=== PATIENT | female | born 1965 | race Caucasian/White ===

== ENCOUNTER → 2016-08-07 | Outpatient (CLI) | payer BC ==
--- NOTE | 2016-08-07 14:32 | CT ---
EXAMINATION TYPE: CT abdomen w con DATE OF EXAM: 08/07/2016 1:59 PM HISTORY: Right-sided abdominal pain for [address] DLP: 373.60mGycm Automated Exposure Control for Dose Reduction was Utilized. CONTRAST: CT scan of the abdomen is performed with oral and with IV Contrast, patient injected with 100 mL of O mnipaque 300. COMPARISON: None. FINDINGS: LUNG BASES: There is linear atelectasis or scarring in the lateral left lower lobe. There is more pat gavin atelectasis or Limited consolidation in visualized portion of the lingula. LIVER/GB: Liver is normal in size with slightly lobulated contour and heterogeneous in appearance. No suspicious intrahepatic mass or hepatic ductal dilatation is seen. Cirrhosis cannot be excluded. Cli nical lab correlation advised. Patent portal vein is seen which is not dilated. There are patent hepa tic veins draining into IVC. PANCREAS: No significant abnormality is seen. SPLEEN: Spleen is mildly enlarged measuring 14.0 cm on long axis on axial image 24 ADRENALS: No significant abnormality is seen. KIDNEYS: No significant abnormality is seen. BOWEL: Oral contrast does not reach colonic level making evaluation slightly suboptimal. There is no suspicious small or large bowel dilatation seen. There is moderate to severe wall thickening in the distal esophagus just above diaphragm. Finding cou ld be product of poor distention. Neoplasm at this level cannot be excluded. Need to further investig ate by endoscopy should be based on clinical correlation. There is suspicion for adjacent prominent v essels or collateral draining veins worrisome for varices. Finding increases suspicion for cirrhosis of the liver and subsequent portal hypertension. LYMPH NODES: No greater than 1cm abdominal abdominal lymph nodes are appreciated. Slightly prominent peripancreatic lymph node is seen near the liver on axial image 24 OSSEOUS STRUCTURES: There is mild multilevel spurring in the spine. There is disc space narrowing L4- L5 level. OTHER: There is mild to moderate atherosclerotic change of aorta and branch vessels. IMPRESSION: 1. Heterogeneous lobulated liver raises concern for underlying cirrhosis. Clinical and lab correlatio n advised. Mild splenomegaly is noted. 2. Attention to distal esophagus as detailed above.
== END | disposition home or self-care (01) ==
LOC: RADCTMAIN 12:43
PROVIDERS: ATTEND Internal Medicine Hematology & Oncology
DX: Q44.7 Other congenital malformations of liver (principal); R16.1 Splenomegaly, not elsewhere classified
CPT/HCPCS: 74160; Q9967

== ENCOUNTER 2019-02-17 12:13 | Day surgery (SDC) | payer BC ==
[2019-02-17 12:53] VITALS: TEMP 98.3
[2019-02-17 12:57] LABS: Mean Platelet Volume 7.9; Platelet Count 102 k/uL (150-450)
[2019-02-17 13:27] LABS: INR 1.1 (<1.2)
[2019-02-17 13:28] LABS: Prothrombin Time 11.5 sec (9.0-12.0)
[2019-02-17 14:28] VITALS: BP 118/62; PULSE 53; RESP 14
--- NOTE | 2019-02-17 14:42 | US ---
Therapeutic paracentesis. DATE OF EXAM: 02/17/2019 CLINICAL HISTORY: Ascites The procedure was discussed with the patient. The risks, complications, benefits, and alternatives we re discussed and any questions were answered. Informed consent was obtained. The patient was placed s upine on the ultrasound table and prepped and draped in the usual sterile fashion. All elements of maximal barrier technique were utilized. Under ultrasound guidance, access into the right lower quadrant was obtained, via the paracentesis catheter system and direct ultrasound guidanc e. Approximately 1.9 liters of straw-colored fluid was removed. The patient was stable throughout the pr ocedure and remained stable upon discharge from Department of Radiology. IMPRESSION: Successful therapeutic paracentesis under ultrasound guidance.
== END 2019-02-17 14:20 | disposition home or self-care (01) ==
LOC: RADPROMAIN 12:13
PROVIDERS: ATTEND Internal Medicine
DX: R18.8 Other ascites (principal)
CPT/HCPCS: 49083; 82565; 85049; 85610

== ENCOUNTER 2019-03-25 12:13 | Day surgery (SDC) | payer BC ==
[2019-03-25 12:36] VITALS: BP 116/64; PULSE 61; RESP 20; TEMP 97.9
--- NOTE | 2019-03-25 13:07 | US ---
Therapeutic paracentesis. DATE OF EXAM: 03/25/2019 CLINICAL HISTORY: Ascites There is only a small amount of fluid within the abdomen. The patient refused the procedure. IMPRESSION: Patient deferred procedure
== END 2019-03-25 12:45 | disposition home or self-care (01) ==
LOC: RADPROMAIN 12:13
PROVIDERS: ATTEND Internal Medicine
DX: R18.8 Other ascites (principal)
CPT/HCPCS: 76705

== ENCOUNTER → 2020-04-28 | Outpatient (CLI) | payer BC ==
--- NOTE | 2020-04-28 08:34 | US ---
EXAMINATION TYPE: US abdomen complete DATE OF EXAM: 04/28/2020 COMPARISON: CT 08/07/16 CLINICAL HISTORY: Alcoholic chirrosis K70.31. Abd pain x 1 year; nausea EXAM MEASUREMENTS: Liver Length: 11.3 cm Gallbladder Wall: 0.3 cm CBD: 0.5 cm Spleen: 12.6 x 5.5 x 6.7 cm Right Kidney: 9.7 x 3.9 x 4.9 cm Left Kidney: 10.4 x 4.9 x 4.4 cm Pancreas: appears WNL as seen Liver: slightly lobulated contour Gallbladder: Few small echogenic foci seen within Evidence for sonographic Finn's sign: No CBD: wnl Spleen: Few small echogenic foci's seen within Right Kidney: No hydronephrosis or masses seen Left Kidney: No hydronephrosis or masses seen Upper IVC: wnl Abd Aorta: some plaque seen within The liver is homogenous. The intrahepatic portion of the IVC and proximal abdominal aorta are within normal limits. Common bile duct is unremarkable. The visualized portions of the pancreas are homog enous. Kidneys are symmetric and free of hydronephrosis. No renal lesions are seen. IMPRESSION: There is evidence of cholelithiasis.
[2020-04-28 10:01] LABS: HCT 36.6 % (34.0-46.0); HGB 12.2 gm/dL (11.4-16.0); MCHC 33.4 g/dL (31.0-37.0); MCV 89.6 fL (80.0-100.0); Mean Platelet Volume 7.8; RBC 4.08 m/uL (3.80-5.40); RDW 13.6 % (11.5-15.5); WBC 4.8 k/uL (3.8-10.6)
[2020-04-28 10:11] LABS: Albumin 4.2 g/dL (3.5-5.0); Calcium 9.4 mg/dL (8.4-10.2); INR 1.1 (<1.2); Potassium 4.6 mmol/L (3.5-5.1); Prothrombin Time 11.4 sec (9.0-12.0); Total Protein 7.5 g/dL (6.3-8.2)
[2020-04-28 10:55] LABS: Platelet Count 75 k/uL (150-450)
== END | disposition home or self-care (01) ==
LOC: RADUSWWP 07:23
PROVIDERS: ATTEND Internal Medicine
DX: K80.20 Calculus of gallbladder without cholecystitis without obstruction (principal); K70.31 Alcoholic cirrhosis of liver with ascites
CPT/HCPCS: 76700; 80053; 82105; 82140; 85027; 85610

== ENCOUNTER 2020-09-23 06:53 | Day surgery (SDC) | payer BC ==
[2020-09-20 11:38] VITALS: BMI 19.4
[2020-09-23] MEDS ORDERED: LIDOCAINE 1% (10MG/ML) FOR IV START INTRADERMA PRN (07:00)
[2020-09-23] MEDS ORDERED: LACTATED RINGERS 1,000 ML IV ONE (07:00)
[2020-09-23] MEDS ORDERED: LACTATED RINGERS 1,000 ML IV SCH (07:00)
[2020-09-23 07:20] LABS: Glucose,Whole Blood 83 mg/dL (75-99)
[2020-09-23] MEDS ORDERED: LIDOCAINE 1% (10MG/ML) FOR IV START INTRADERMA ONE (07:21)
[2020-09-23 07:25] VITALS: TEMP 98.4
[2020-09-23] MEDS ORDERED: PROPOFOL 10 MG/ML 20 ML VIAL IV ONE (07:37)
--- NOTE | 2020-09-23 08:06 | P.PCN ---
Date of Procedure: 09/23/20 Description of Procedure: BRIEF HISTORY: Patient is a 55-year-old female presenting for esophagogastroduodenoscopy for evaluation of cirrhosis of the liver and varices. 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 Last EGD showed small varices, the patient was unable to tolerate nonselective beta joanna therapy. PROCEDURE PERFORMED: Esophagogastroduodenoscopy with biopsies. PREOPERATIVE DIAGNOSIS: Alcoholic cirrhosis of the liver, variceal screening. ESTIMATED BLOOD LOSS: Minimal. IV sedation per anesthesia. PROCEDURE: After informed consent was obtained, the patient was brought into the endoscopy unit. IV sedation was administered by Anesthesia under continuous monitoring. Initially the Olympus GIF-190 video endoscope was inserted into the mouth. Esophagus intubated without any difficulty. It was gradually advanced into the stomach and duodenum and carefully examined. The bulb and the second part of the duodenum appeared normal, with biopsies taken. The scope at this time was withdrawn to the stomach, adequately insufflated with air, and upon careful examination, mucosa of the antrum, body, cardia and the fundus appeared normal except for some mild scattered erythema in the antrum and body suggestive of mild gastritis biopsies taken. The scope was then withdrawn into the esophagus. The GE junction was located at 37 cm from the incisors. The esophagus appeared normal with no varices noted. There were no erosions or ulcerations seen and the patient tolerated the procedure well. IMPRESSION: 1. Mild gastritis . 2. No varices or other abnormalities of the esophagus started. 3. Biopsies of the duodenum, antrum and body. RECOMMENDATIONS: The findings of this examination were discussed with the patient and her . Okay to resume diet. Okay to resume medications. Await pathology from biopsies. Continue current medical management. Follow-up in the GI clinic as previously scheduled.
[2020-09-23 08:26] VITALS: BP 101/68; PULSE 72; RESP 16
== END 2020-09-23 09:25 | disposition home or self-care (01) ==
LOC: ORWHC2ENDO 06:53
PROVIDERS: ATTEND Internal Medicine
DX: K70.30 Alcoholic cirrhosis of liver without ascites (principal); K31.9 Disease of stomach and duodenum, unspecified; K29.70 Gastritis, unspecified, without bleeding; E11.9 Type 2 diabetes mellitus without complications; F41.9 Anxiety disorder, unspecified; F32.9 Major depressive disorder, single episode, unspecified; K21.9 Gastro-esophageal reflux disease without esophagitis; Z87.891 Personal history of nicotine dependence; Z96.652 Presence of left artificial knee joint; Z90.710 Acquired absence of both cervix and uterus; Z98.890 Other specified postprocedural states; J44.9 Chronic obstructive pulmonary disease, unspecified; Z79.891 Long term (current) use of opiate analgesic; Z79.899 Other long term (current) drug therapy
CPT/HCPCS: 88305; 43239; J2704

== ENCOUNTER → 2020-09-27 | Outpatient (CLI) | payer BC ==
--- NOTE | 2020-09-27 09:39 | CT ---
EXAMINATION TYPE: CT soft tissue neck w con DATE OF EXAM: 09/27/2020 HISTORY: Mass left side neck, under jaw COMPARISON: NONE CT DLP: 308.0 mGycm. Automated Exposure Control for Dose Reduction was Utilized. TECHNIQUE: CT scan of the neck is performed with IV Contrast, patient injected with 80 mL of Isovue 300, axial images are obtained, coronal and sagittal reformatted images are reviewed. FINDINGS: Airway: Mild to probable moderate underlying emphysematous change and visualized upper lungs. Mild to moderate biapical pleural/parenchymal scarring. Remainder right patent. Parotid/submandibular glands: Metallic BB at level of left submandibular gland axial image 57. Subman dibular glands symmetric and felt within normal limits. No concerning solid or cystic mass or abnorma l fluid collection this level identified. Parotid glands also symmetric and felt within normal limits . Carotid/Vascular Structures: Mild to moderate mixed plaque left carotid bulb. Moderate peripheral sav que right carotid bulb extends into proximal internal carotid artery. No significant stenosis. Mild t o moderate calcified plaque right greater than left distal internal carotid arteries. Osseous Structures: Grade 1 retrolisthesis C5 on C6 and C6 on C7 with moderate disc space narrowing a nd spurring and endplate sclerosis. Other: Few scattered subcentimeter lymph nodes are noted throughout the neck bilaterally. Prominent b ut subcentimeter lymph node posterior to the BB and left submandibular gland noted symmetric to the o pposite right side. No greater than 1 cm neck adenopathy. IMPRESSION: No suspicious mass at the area of concern left submandibular region.
== END | disposition home or self-care (01) ==
LOC: RADCTMAIN 08:46
PROVIDERS: ATTEND Otolaryngology
DX: R22.1 Localized swelling, mass and lump, neck (principal)
CPT/HCPCS: 70491; Q9967

== ENCOUNTER → 2020-09-27 | Outpatient (CLI) | payer BC ==
[~2020-09-27] MED LIST: SODIUM CHLORIDE 0.9% 500 ML 500 ML in EMPTY BAG 1 BAG IV PRN
[2020-09-27 07:45] VITALS: BP 122/81; PULSE 88; RESP 16; TEMP 98.4
[2020-09-27] MEDS: SODIUM CHLORIDE 0.9% 500 ML 500 ML IV NR ×2 (07:46→09:18)
[2020-09-27 08:15] LABS: Calcium 9.6 mg/dL (8.4-10.2)
== END | disposition home or self-care (01) ==
LOC: PROCWHC3 07:21
PROVIDERS: ATTEND Internal Medicine
DX: N18.30 Chronic kidney disease, stage 3 unspecified (principal)
CPT/HCPCS: 36415; 80048; 96360; 96361

== ENCOUNTER → 2020-10-26 | Outpatient (CLI) | payer BC ==
[2020-10-26 18:33] LABS: Chol/HDL Ratio 2.34; LDL Cholesterol,Calculated 75.8 mg/dL (0.0-131.0); VLDL Calculation 11.2 mg/dL (5.00-40.00)
== END | disposition home or self-care (01) ==
LOC: LABWHC1 08:18
PROVIDERS: ATTEND Nurse Practitioner Adult Health
DX: E78.2 Mixed hyperlipidemia (principal)
CPT/HCPCS: 36415; 80061; 84450; 84460

== ENCOUNTER → 2020-12-28 | Outpatient (CLI) | payer BC ==
[2020-12-28 09:01] LABS: Appearance,Urine Clear (Clear); Bilirubin,Urine Negative (Negative); Blood,Urine Negative (Negative); Color,Urine Light Yellow; Glucose,Urine (UA) Negative (Negative); Ketones,Urine Negative (Negative); Leukocyte Esterase,Urine Negative (Negative); Nitrite,Urine Negative (Negative); PH, Urine 6.5 (5.0-8.0); Protein,Urine Negative (Negative); Specific Gravity,Urine 1.009 (1.001-1.035); Urobilinogen,Urine <2.0 mg/dL (<2.0)
[2020-12-28 09:10] LABS: Albumin 4.2 g/dL (3.5-5.0); Calcium 9.2 mg/dL (8.4-10.2); Phosphorus 4.5 mg/dL (2.5-4.5); Potassium 4.4 mmol/L (3.5-5.1); Total Bilirubin 0.6 mg/dL (0.2-1.3); Uric Acid 5.3 mg/dL (3.7-7.4)
[2020-12-28 09:15] LABS: HCT 35.5 % (34.0-46.0); HGB 11.9 gm/dL (11.4-16.0); MCH 28.9 pg (25.0-35.0); MCHC 33.4 g/dL (31.0-37.0); MCV 86.5 fL (80.0-100.0); Mean Platelet Volume 8.1; RDW 13.7 % (11.5-15.5); WBC 3.3 k/uL (3.8-10.6)
[2020-12-28 09:16] LABS: Prothrombin Time 11.1 sec (9.0-12.0)
--- NOTE | 2020-12-28 09:41 | US ---
EXAMINATION TYPE: US abdomen complete DATE OF EXAM: 12/28/2020 COMPARISON: CT, US CLINICAL HISTORY: K70.31 ALCOHOLIC CIRRHOSIS OF LIVER WITH ASCITES. Stage 3A renal Disease and gallst ones per patient. EXAM MEASUREMENTS: Liver Length: 9.4 x 4.7 x 3.8 cm Gallbladder Wall: 0.1 cm CBD: 0.6 cm Spleen: 12.7 x 14.0 x 4.5 cm Right Kidney: 9.4 x 4.7 x 3.8 cm Left Kidney: 10.0 x 4.6 x 3.5 cm Pancreas: wnl Liver: periportal wall brightness noted on image #37, lobular borders seen left lobe; enlarged MPV i s noted as is greater than13.0cm Gallbladder: multiple, mobile stones are noted within Evidence for sonographic Finn's sign: no CBD: wnl Spleen: enlarged in one measure with multiple hyperechoic foci (granulomas) Right Kidney: No hydronephrosis or masses seen Left Kidney: hyperechoic vessel lord seen suggests wall calcifications Upper IVC: wnl Abd Aorta: ectatic appearance with wall calcifications seen, but size is wnl. IMPRESSION: 1. Persistent periportal increased echogenicity within the right lobe liver. Consider CT abdomen with contrast ordered additional evaluation. 2. Cholelithiasis
[2020-12-28 09:58] LABS: Platelet Count 81 k/uL (150-450)
[2020-12-28 20:22] LABS: % Iron Saturation 35.27 (12.00-45.00)
[2020-12-28 20:31] LABS: Ferritin 173.9 ng/mL (10.0-291.0); Folate, Serum 8.3 ng/mL
== END | disposition home or self-care (01) ==
LOC: RADUSWWP 07:10
PROVIDERS: ATTEND Internal Medicine
DX: K70.31 Alcoholic cirrhosis of liver with ascites (principal); K80.20 Calculus of gallbladder without cholecystitis without obstruction; D64.9 Anemia, unspecified; E55.9 Vitamin D deficiency, unspecified; M10.9 Gout, unspecified; N18.31 Chronic kidney disease, stage 3a
CPT/HCPCS: 36415; 76700; 80053; 81003; 82105; 82140; 82306; 82607; 82728; 82746; 83540; 83550; 83735; 83970; 84100; 84443; 84550; 85027; 85610

== ENCOUNTER → 2021-01-06 | Outpatient (CLI) | payer BC ==
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
== END | disposition home or self-care (01) ==
LOC: RADMRIMAIN 14:44
PROVIDERS: ATTEND Psychiatry & Neurology Neurology
DX: M50.223 Other cervical disc displacement at C6-C7 level (principal); M47.812 Spondylosis without myelopathy or radiculopathy, cervical region
CPT/HCPCS: 70551; 72141

== ENCOUNTER → 2021-01-12 | Outpatient (CLI) | payer BC ==
--- NOTE | 2021-01-12 21:53 | MR ---
EXAMINATION TYPE: MR tspine/lspine wo con DATE OF EXAM: 01/12/2021 COMPARISON: HISTORY: Scoliosis for years, mid and low back pain down left and right leg. CONTRAST: Performed utilizing mL intravenous gadolinium contrast. TECHNIQUE: Multiplanar, multiecho imaging on a 3.0 Bárbara magnet is performed through the thoracic spi ne. Spinal cord maintains normal signal through its visualized course. Vertebral body alignment is normal. Vertebral body heights are preserved. Endplate changes are present compatible with Modic type I degen erative change. Mild diffuse disc space narrowing is present. There is some disc desiccation. No spinal canal stenosis is evident. IMPRESSIONS: 1. Mild degenerative changes. EXAMINATION TYPE: MR tspine/lspine wo con DATE OF EXAM: 01/12/2021 COMPARISON: None HISTORY: Scoliosis for years, mid and low back pain down left and right leg. CONTRAST: 0 mL intravenous Gadavist. TECHNIQUE: Multiplanar, multisequence images of the lumbar spine were acquired. FINDINGS: L5-S1: No significant disc bulge or disc herniation. No spinal canal stenosis. No foraminal stenosi s. . L4-L5: Central disc bulge is present with mild anterior thecal sac compression. No spinal canal sten osis. No foraminal stenosis. Facet hypertrophy is present.. L3-L4: Mild disc bulge is present with anterior thecal sac flattening. No spinal canal stenosis is pr esent. No foraminal stenosis. . L2-L3: Mild left and right lateral disc bulge is present. No foraminal stenosis is present. No spinal canal stenosis is present No spinal canal stenosis. No foraminal stenosis. . L1-L2: Mild disc bulge is present with anterior thecal sac contact. No spinal canal stenosis or neura l foraminal stenosis is present No spinal canal stenosis. No foraminal stenosis. . T12-L1: No significant disc bulge or disc herniation. No spinal canal stenosis. No foraminal stenos is. . IMPRESSION: 1. Central focal bulge L4-5 with mild anterior thecal sac compression. 2. Mild disc bulging L1-2 L2-3 and L3-4.
== END | disposition home or self-care (01) ==
LOC: RADMRIMAIN 13:48
PROVIDERS: ATTEND Orthopaedic Surgery
DX: M47.812 Spondylosis without myelopathy or radiculopathy, cervical region (principal); M51.26 Other intervertebral disc displacement, lumbar region
CPT/HCPCS: 72146; 72148

== ENCOUNTER → 2021-03-14 | Outpatient (CLI) | payer BC ==
[2021-03-14 11:16] VITALS: BP 104/68; PULSE 96; RESP 18; TEMP 98.2
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
== END | disposition home or self-care (01) ==
LOC: PNWHC3 10:58
PROVIDERS: ATTEND Anesthesiology
DX: M47.892 Other spondylosis, cervical region (principal); Z88.8 Allergy status to other drugs, medicaments and biological substances; F17.200 Nicotine dependence, unspecified, uncomplicated
CPT/HCPCS: 99211

== ENCOUNTER 2021-04-05 12:50 | Day surgery (SDC) | payer BC ==
[2021-03-31 15:00] VITALS: BMI 20.3
[~2021-04-05 12:50] MED LIST changes: +LACTATED RINGERS 1,000 ML IV SCH; -SODIUM CHLORIDE 0.9% 500 ML 500 ML in EMPTY BAG 1 BAG IV PRN
[2021-04-05 13:13] VITALS: RESP 16; TEMP 96.7
[2021-04-05 13:19] LABS: Glucose,Whole Blood 83 mg/dL (75-99)
[2021-04-05] MEDS ORDERED: fentaNYL (PF) 50 MCG/ML 2 ML AMP ONE (13:20)
[2021-04-05] MEDS ORDERED: DEXAMETHASONE SOD PHOSPHATE 10 MG/ML 1 ML VIAL ONE (13:20)
[2021-04-05] MEDS ORDERED: MIDAZOLAM 2 MG/2 ML VIAL ONE (13:20)
[2021-04-05] MEDS ORDERED: IOPAMIDOL M200 10 ML VIAL ONE (13:20)
--- NOTE | 2021-04-05 13:35 | P.PCN ---
Date of Procedure: 04/05/21 Surgeon: Sabino Gunter Pathology: none sent Condition: stable Disposition: PACU Description of Procedure: PROCEDURE 1. Cervical epidural steroid injection under fluoroscopic guidance, C7-T1 Right paramedian approach. 2. Cervical epidurogram. : PREOPERATIVE DIAGNOSIS: Cervical radiculopathy, cervical spondylosis without myelopathy POSTOPERATIVE DIAGNOSIS: : Same as above ANESTHESIA: Local anesthesia with 1% lidocaine and IV moderate conscious sedation with 1 mg of Versed and 50 mcg of Fentanyl . EBL 0 PROCEDURE INDICATION: The patient with neck pain and radiculopathy unresponsive to conservative treatment consents for procedure. PROCEDURE DESCRIPTION / TECHNIQUE: The patient was seen and identified in the preoperative area. Risks, benefits, complications, including but not limited to infections ,bleeding , allergic reactions to the medications ,and not complete pain relief, and alternatives were discussed with the patient, the patient agreed to proceed with the procedure and signed the consent. Patient was taken to the OR and time out was completed. The patient was placed in the prone position on the procedure table. A pillow was placed under the patients chest to increase the flexion of the cervical spine . The cervical area was prepped and draped in the usual sterile fashion. Vital signs were closely monitored during the procedure. Conscious sedation was used during the procedure to decrease patients anxiety. Using anterior-posterior fluoroscopy, the C7-T1 interlaminar space was identified and the skin over this site was marked and then infiltrated with 1% lidocaine subcutaneously. Subsequently, a 20-gauge 3-1/2-inch Tuohy epidural needle was inserted and advanced toward the epidural space by means of loss of resistance to air technique and guided by AP and lateral fluoroscopy. The needle tip contacted the lamina of T1 vertebra first, then it was walked off bone and into the epidural space using the loss of to air and fluoroscopic guidance to identify the epidural space. The correct needle position in the epidural space was verified with the injection of 1 mL of the water soluble contrast dye Isovue and observing an excellent epidurogram with the epidural spread of the dye, after negative aspiration for blood and CSF and in the absence of paresthesias. Again after negative aspiration, a 2 ml mixture containing 10 mg of Decadron and 1 ml of preservative free Normal Saline solution was injected and a washout of epidurogram was seen. Needle was withdrawn intact, skin was cleansed, and bandages were applied. A copy of the needle placement picture was saved to the fluoroscopy machine.
[2021-04-05] MEDS ORDERED: IV FLUID CONTINUATION 750 ML IV ONE (13:39)
[2021-04-05 13:58] VITALS: BP 95/63; PULSE 76
--- NOTE | 2021-04-05 19:27 | FL ---
EXAMINATION TYPE: FL guided pain mgmt statistic DATE OF EXAM: 04/05/2021 FLUOROSCOPY Fluoroscopy time of 9 seconds was used during cervical epidural injection. 1 image/s document/s the procedure.
== END 2021-04-05 14:30 | disposition home or self-care (01) ==
LOC: ORPAIN 12:50
PROVIDERS: ATTEND Anesthesiology
DX: M47.22 Other spondylosis with radiculopathy, cervical region (principal); F41.9 Anxiety disorder, unspecified
CPT/HCPCS: 62321; J2250; J1100; J3010; Q9966; 99152

== ENCOUNTER → 2021-04-21 | Outpatient (CLI) | payer BC ==
[2021-04-22 01:25] LABS: African American GFR (CKD) 84.7 (60.0-200.0); Albumin 4.5 g/dL (3.8-4.9); Albumin/Globulin Ratio 1.58 (1.60-3.17); Anion Gap 13.4 mmol/L (4.00-12.00); BUN/Creat Ratio 20.48 Ratio (12.00-20.00); Blood Urea Nitrogen 18.1 mg/dL (9.0-27.0); Calcium 9.5 mg/dL (8.7-10.3); Carbon Dioxide 25.3 mmol/L (21.6-31.8); Globulin 2.8 g/dL (1.6-3.3); Potassium 3.8 mmol/L (3.5-5.5); Total Bilirubin 0.7 mg/dL (0.30-1.20); Total Protein 7.3 g/dL (6.2-8.2)
== END | disposition home or self-care (01) ==
LOC: LABWHC1 11:54
PROVIDERS: ATTEND Family Medicine
DX: Z51.81 Encounter for therapeutic drug level monitoring (principal)
CPT/HCPCS: 36415; 80053

== ENCOUNTER → 2021-05-06 | Outpatient (CLI) | payer BC ==
[2021-05-06 23:05] LABS: INR 1.03 (0.90-1.11); Prothrombin Time 11.2 sec (9.9-11.9)
[2021-05-07 00:24] LABS: Albumin 4.1 g/dL (3.8-4.9); Albumin/Globulin Ratio 1.52 (1.60-3.17); Anion Gap 13.4 mmol/L (4.00-12.00); BUN/Creat Ratio 22.09 Ratio (12.00-20.00); Blood Urea Nitrogen 24.3 mg/dL (9.0-27.0); Carbon Dioxide 24.6 mmol/L (21.6-31.8); Globulin 2.7 g/dL (1.6-3.3); Non-African American GFR(CKD) 56.1 (60.0-200.0); Potassium 3.9 mmol/L (3.5-5.5); Total Bilirubin 0.4 mg/dL (0.30-1.20); Total Protein 6.8 g/dL (6.2-8.2)
[2021-05-07 00:31] LABS: Basophils # (A) 0.03 X 10*3/uL (0.00-0.10); Basophils % (A) 0.6 %; Eosinophils # (A) 0.11 X 10*3/uL (0.04-0.35); Eosinophils % (A) 2.3 %; HCT 34.6 % (37.2-46.3); HGB 11.6 g/dL (12.0-15.0); Lymphocytes # (A) 1.28 X 10*3/uL (0.90-5.00); Lymphocytes % (A) 26.5 %; MCH 28.9 pg (27.0-32.0); MCHC 33.5 g/dL (32.0-37.0); MCV 86.1 fL (80.0-97.0); Mean Platelet Volume 11.2 fL (9.5-12.2); Monocytes # (A) 0.45 X 10*3/uL (0.20-1.00); Monocytes % (A) 9.3 %; Neutrophils # (A) 2.95 X 10*3/uL (1.80-7.70); Neutrophils % (A) 61.1 %; Platelet Count 90 X 10*3/uL (140-440); RBC 4.02 X 10*6/uL (4.10-5.20); RDW 12.6 % (11.5-14.5); WBC 4.83 X 10*3/uL (4.50-10.00)
== END | disposition home or self-care (01) ==
LOC: LABWHC1 15:55
PROVIDERS: ATTEND Internal Medicine Gastroenterology
DX: K74.60 Unspecified cirrhosis of liver (principal)
CPT/HCPCS: 36415; 80053; 82105; 85025; 85610

== ENCOUNTER 2021-05-24 09:39 | Day surgery (SDC) | payer BC ==
[2021-05-23 09:02] VITALS: BMI 20.3
[2021-05-24 09:52] VITALS: BP 119/77; PULSE 88; RESP 18; TEMP 97.8
== END 2021-05-24 10:13 | disposition home or self-care (01) ==
LOC: ORPAIN 09:39
DX: M47.892 Other spondylosis, cervical region (principal); M48.02 Spinal stenosis, cervical region; Z53.9 Procedure and treatment not carried out, unspecified reason

== ENCOUNTER → 2021-06-20 | Outpatient (CLI) | payer BC ==
[2021-06-20 17:17] LABS: Appearance,Urine Clear (Clear); Bilirubin,Urine Negative (Negative); Blood,Urine Negative (Negative); Color,Urine Colorless; Glucose,Urine (UA) Negative (Negative); Ketones,Urine Negative (Negative); Leukocyte Esterase,Urine Negative (Negative); Nitrite,Urine Negative (Negative); PH, Urine 6.5 (5.0-8.0); Protein,Urine Negative (Negative); Specific Gravity,Urine 1.003 (1.001-1.035); Urobilinogen,Urine <2.0 mg/dL (<2.0)
[2021-06-20 23:03] LABS: Basophils # (A) 0.02 X 10*3/uL (0.00-0.10); Basophils % (A) 0.5 %; Eosinophils % (A) 2.3 %; HCT 31.7 % (37.2-46.3); HGB 9.9 g/dL (12.0-15.0); Lymphocytes # (A) 1.14 X 10*3/uL (0.90-5.00); Lymphocytes % (A) 26.5 %; MCH 26.8 pg (27.0-32.0); MCHC 31.2 g/dL (32.0-37.0); MCV 85.9 fL (80.0-97.0); Mean Platelet Volume 11.1 fL (9.5-12.2); Monocytes # (A) 0.32 X 10*3/uL (0.20-1.00); Monocytes % (A) 7.4 %; Neutrophils # (A) 2.72 X 10*3/uL (1.80-7.70); Neutrophils % (A) 63.1 %; Platelet Count 100 X 10*3/uL (140-440); RBC 3.69 X 10*6/uL (4.10-5.20); WBC 4.31 X 10*3/uL (4.50-10.00)
[2021-06-21 01:57] LABS: % Iron Saturation 11.04 (12.00-45.00); African American GFR (CKD) 59.7 (60.0-200.0); Albumin 4.2 g/dL (3.8-4.9); Albumin/Globulin Ratio 1.64 (1.60-3.17); Anion Gap 11.9 mmol/L (10.00-18.00); BUN/Creat Ratio 12.37 Ratio (12.00-20.00); Blood Urea Nitrogen 14.6 mg/dL (9.0-27.0); Calcium 8.9 mg/dL (8.7-10.3); Carbon Dioxide 26.7 mmol/L (20.0-27.5); Globulin 2.6 g/dL (1.6-3.3); Non-African American GFR(CKD) 51.5 (60.0-200.0); Phosphorus 3.7 mg/dL (2.4-5.1); Potassium 3.6 mmol/L (3.5-5.5); Total Bilirubin 0.3 mg/dL (0.30-1.20); Total Protein 6.8 g/dL (6.2-8.2); Uric Acid 5.7 mg/dL (2.9-7.7)
== END | disposition home or self-care (01) ==
LOC: LABWHC1 16:05
PROVIDERS: ATTEND Internal Medicine
DX: D64.9 Anemia, unspecified (principal); E55.9 Vitamin D deficiency, unspecified; N39.0 Urinary tract infection, site not specified; N25.81 Secondary hyperparathyroidism of renal origin; M10.9 Gout, unspecified; N18.31 Chronic kidney disease, stage 3a
CPT/HCPCS: 36415; 80053; 81001; 81003; 82306; 82728; 83540; 83550; 83735; 83970; 84100; 84550; 85025

== ENCOUNTER → 2021-10-10 | Outpatient (CLI) | payer BC ==
[2021-10-10 18:19] LABS: Basophils # (A) 0.03 X 10*3/uL (0.00-0.10); Basophils % (A) 0.6 %; Eosinophils # (A) 0.07 X 10*3/uL (0.04-0.35); Eosinophils % (A) 1.5 %; HCT 40.7 % (37.2-46.3); HGB 13.1 g/dL (12.0-15.0); Immature Grans, Automated 0.2 %; Lymphocytes # (A) 1.06 X 10*3/uL (0.90-5.00); Lymphocytes % (A) 22.7 %; MCH 28.9 pg (27.0-32.0); MCHC 32.2 g/dL (32.0-37.0); MCV 89.6 fL (80.0-97.0); Mean Platelet Volume 10.4 fL (9.5-12.2); Monocytes # (A) 0.36 X 10*3/uL (0.20-1.00); Monocytes % (A) 7.7 %; NRBC Per 100 WBC 0 /100 WBCS (0.0-0.0); Neutrophils # (A) 3.13 X 10*3/uL (1.80-7.70); Neutrophils % (A) 67.3 %; Platelet Count 109 X 10*3/uL (140-440); RBC 4.54 X 10*6/uL (4.10-5.20); RDW 13.3 % (11.5-14.5); WBC 4.66 X 10*3/uL (4.50-10.00)
[2021-10-10 18:36] LABS: % Iron Saturation 24.31 (12.00-45.00); African American GFR (CKD) 57.5 (60.0-200.0); Albumin 4.6 g/dL (3.8-4.9); Albumin/Globulin Ratio 1.48 (1.60-3.17); Anion Gap 16.3 mmol/L (10.00-18.00); BUN/Creat Ratio 10.66 Ratio (12.00-20.00); Blood Urea Nitrogen 12.9 mg/dL (9.0-27.0); Calcium 9.4 mg/dL (8.7-10.3); Carbon Dioxide 27.4 mmol/L (20.0-27.5); Globulin 3.1 g/dL (1.6-3.3); Magnesium 1.9 mg/dL (1.5-2.4); Non-African American GFR(CKD) 49.6 (60.0-200.0); Phosphorus 3.6 mg/dL (2.4-5.1); Potassium 3.4 mmol/L (3.5-5.5); Total Bilirubin 0.6 mg/dL (0.30-1.20); Total Protein 7.6 g/dL (6.2-8.2); Uric Acid 5.8 mg/dL (2.9-7.7)
[2021-10-10 18:51] LABS: Ferritin 93.6 ng/mL (10.0-291.0)
[2021-10-10 19:32] LABS: Appearance,Urine Clear (Clear); Bacteria,Urine None Seen /HPF (None Seen); Bilirubin,Urine Negative (Negative); Blood,Urine Negative (Negative); Color,Urine Yellow (Yellow); Ketones,Urine Negative (Negative); Leukocyte Esterase,Urine Moderate (Negative); Nitrite,Urine Negative (Negative); Protein,Urine Negative (Negative); RBC,Urine 0-2 /HPF (0-2); Specific Gravity,Urine 1.006 (1.001-1.030); Urobilinogen,Urine 0.2 (0.2,1.0)
== END | disposition home or self-care (01) ==
LOC: LABWHC1 14:20
PROVIDERS: ATTEND Internal Medicine
DX: N25.81 Secondary hyperparathyroidism of renal origin (principal); N18.31 Chronic kidney disease, stage 3a; D64.9 Anemia, unspecified; N39.0 Urinary tract infection, site not specified; E55.9 Vitamin D deficiency, unspecified; M10.9 Gout, unspecified
CPT/HCPCS: 36415; 80053; 81001; 82306; 82728; 83540; 83550; 83735; 83970; 84100; 84550; 85025

== ENCOUNTER → 2021-10-17 | Outpatient (CLI) | payer BC ==
--- NOTE | 2021-10-17 13:16 | US ---
EXAMINATION TYPE: US abdomen limited DATE OF EXAM: 10/17/2021 COMPARISON: NONE CLINICAL HISTORY: 56-year-old female K74.60 Liver cirrhosis. Fluid ascites TECHNIQUE: Multiple sonographic images of the 4 abdominal quadrants for assessment of ascites fluid. FINDINGS: Deployment Specialist notes: No fluid visualized. IMPRESSION: Scanning for assessment of ascites fluid. No abdominopelvic ascites identified.
== END | disposition home or self-care (01) ==
LOC: RADUSWWP 09:44
PROVIDERS: ATTEND Internal Medicine
DX: K74.60 Unspecified cirrhosis of liver (principal)
CPT/HCPCS: 76705

== ENCOUNTER → 2021-11-17 | Outpatient (CLI) | payer BC ==
--- NOTE | 2021-11-17 09:24 | US ---
EXAMINATION TYPE: US liver DATE OF EXAM: 11/17/2021 COMPARISON: CT abdomen August 07, 2016 CLINICAL HISTORY: K70.31 ALCOHOLIC CIRRHOSIS OF LIVER WITH ASCITES. cirrhosis, epigastric pain EXAM MEASUREMENTS: Liver Length: 11.5 cm Gallbladder Wall: 0.3 cm CBD: 0.5 cm Right Kidney: 9.5 x 3.6 x 4.0 cm Pancreas: Tail obscured by overlying bowel gas Liver: lobulated left lobe Gallbladder: stones Evidence for sonographic Finn's sign: no CBD: wnl Right Kidney: no evidence of hydronephrosis Visualized portion of pancreas within normal limits. Visualized liver heterogeneously hyperechoic but shows no worrisome mass or ductal dilatation. No surrounding ascites. Small mobile gallstones in gal lbladder. IMPRESSION: Findings consistent with underlying hepatocellular disease. No abnormal biliary dilatatio n. No focal ascites currently.
== END | disposition home or self-care (01) ==
LOC: RADUSWWP 07:41
PROVIDERS: ATTEND Internal Medicine Gastroenterology
DX: K70.31 Alcoholic cirrhosis of liver with ascites (principal)
CPT/HCPCS: 76705

== ENCOUNTER 2021-12-21 20:17 | Inpatient (IN) | payer BC ==
[2021-12-21] MEDS ORDERED: PANTOPRAZOLE 40 MG/10 ML VIAL IVP STA (22:03)
[2021-12-21 22:39] LABS: Albumin 3.6 g/dL (3.5-5.0); Calcium 8.5 mg/dL (8.4-10.2); Potassium 3.4 mmol/L (3.5-5.1); Total Bilirubin 0.4 mg/dL (0.2-1.3); Total Protein 6.4 g/dL (6.3-8.2)
--- NOTE | 2021-12-21 22:39 | ED ---
Recheck HPI - General Chief Complaint: Recheck/Abnormal Lab/Rx Stated Complaint: Abnormal Labs,PCP sent Time Seen by Provider: 12/21/21 22:03 Source: patient Mode of arrival: ambulatory Limitations: no limitations - History of Present Illness Initial Comments: Patient is a 56-year-old woman, who states that she has history of previous liver disease, kidney disease and history of previous GI bleeding. She had a follow-up with her physician today and then received a call tonight that her hemoglobin was 5.3. Patient does note that she has been having fatigue and some exertional dyspnea. Has noted black stools going on for 3 weeks but resisted going to see the physician because she had a family event she wanted to attend. MD Complaint: abnormal lab -: hour(s) Returns Today for: Called Because of Abnormal Lab/Test Symptoms Since Prior Visit: no new symptoms Context: called for abnormal lab result Associated Symptoms: other (Fatigue and exertional dyspnea) - Related Data Home Medications Medication Instructions Recorded Confirmed Albuterol Sulfate [Proair Hfa] 2 puff INHALATION RT-Q4H PRN 06/21/15 12/21/21 ALPRAZolam [Xanax] 1 mg PO TID 02/12/19 12/21/21 traMADol HCl [Ultram] 50 mg PO TID 02/12/19 12/21/21 Nortriptyline [Pamelor] 10 mg PO DAILY 03/09/21 12/21/21 Spironolactone [Aldactone] 25 mg PO BID 03/09/21 12/21/21 Cyclobenzaprine [Flexeril] 5 mg PO BID 03/14/21 12/21/21 Lidocaine [Lidoderm 5% Patch] 1 patch TRANSDERM DAILY PRN 03/14/21 12/21/21 Pantoprazole Sodium [Protonix] 40 mg PO DAILY 03/14/21 12/21/21 Torsemide [Demadex] 20 mg PO DAILY 03/14/21 12/21/21 Famotidine 40 mg PO HS 12/21/21 12/21/21 Lactulose 20 gm PO TID 12/21/21 12/21/21 Linaclotide [Linzess] 145 mcg PO DAILY PRN 12/21/21 12/21/21 Montelukast Sodium [Singulair] 10 mg PO DAILY 12/21/21 12/21/21 Potassium Chloride ER [K-Dur 10] 10 meq PO DAILY 12/21/21 12/21/21 polyethylene glycoL 3350 [Miralax] 17 gm PO DAILY PRN 12/21/21 12/21/21 Allergies Allergy/AdvReac Type Severity Reaction Status Date / Time propranolol Allergy Unknown Verified 12/21/21 23:28 Review of Systems ROS Statement: Those systems with pertinent positive or pertinent negative responses have been documented in the HPI. ROS Other: All systems not noted in ROS Statement are negative. Constitutional: Denies: fever, chills Respiratory: Denies: cough, dyspnea, wheezes, hemoptysis Cardiovascular: Reports: dyspnea on exertion. Denies: chest pain, palpitations, edema Gastrointestinal: Reports: melena. Denies: abdominal pain, nausea, vomiting, diarrhea, constipation, hematemesis, hematochezia Genitourinary: Denies: dysuria, hematuria Musculoskeletal: Denies: back pain Skin: Denies: rash Neurological: Denies: headache, weakness Past Medical History Past Medical History: Asthma, Coronary Artery Disease (CAD), COPD, Diabetes Mellitus, GERD/Reflux, Hyperlipidemia, Hypertension, Liver Disease, Mitral Valve Prolapse (MVP), Osteoarthritis (OA), Renal Disease Additional Past Medical History / Comment(s): scoliosis , herniated disc in neck. Diet controlled DM. STAGE 3A KIDNEY DISEASE History of Any Multi-Drug Resistant Organisms: None Reported Past Surgical History: Breast Surgery, Hysterectomy, Joint Replacement, Orthopedic Surgery Additional Past Surgical History / Comment(s): Total L knee arthroplasty, LT BREAST LUMPECTOMY, REPAIR FX STERNUM, REPAIR FX RT FEMUR, shannon knee arthroscopy, Paracentesis, EGD. PAIN CLINIC PROCEDURES IN THE PAST Past Anesthesia/Blood Transfusion Reactions: No Reported Reaction Past Psychological History: Anxiety, Depression Smoking Status: Current every day smoker, Vaper Past Alcohol Use History: None Reported Past Drug Use History: None Reported - Past Family History Mother Family Medical History: Fibromyalgia General Exam General appearance: alert, in no apparent distress Head exam: Present: atraumatic, normocephalic Eye exam: Present: normal appearance, other (Conjunctival pallor). Absent: scleral icterus, conjunctival injection ENT exam: Present: other (Mucosal pallor) Neck exam: Present: normal inspection Respiratory exam: Present: normal lung sounds bilaterally. Absent: respiratory distress, wheezes, rales, rhonchi, stridor Cardiovascular Exam: Present: regular rate, normal rhythm, normal heart sounds. Absent: systolic murmur, diastolic murmur, rubs, gallop GI/Abdominal exam: Present: soft. Absent: distended, tenderness, guarding, rebound, rigid, mass Extremities exam: Present: normal inspection, normal capillary refill. Absent: pedal edema, calf tenderness Back exam: Present: normal inspection. Absent: CVA tenderness (R), CVA tenderness (L) Neurological exam: Present: alert Skin exam: Present: warm, dry, intact, pallor. Absent: rash Course Vital Signs 12/21/21 12/21/21 12/22/21 21:28 22:16 00:54 Temperature 98.4 F Pulse Rate 106 H 96 92 Respiratory 20 18 16 Rate Blood Pressure 101/62 104/65 106/65 O2 Sat by Pulse 95 100 98 Oximetry 12/22/21 12/22/21 12/22/21 04:40 04:50 05:20 Temperature 97.9 F 98.3 F 98.2 F Pulse Rate 88 92 88 Respiratory 16 16 16 Rate Blood Pressure 82/44 90/51 92/57 O2 Sat by Pulse 98 95 Oximetry 12/22/21 12/22/21 12/22/21 06:29 07:03 09:10 Temperature 98.0 F 98.3 F 98.3 F Pulse Rate 85 86 85 Respiratory 16 16 16 Rate Blood Pressure 90/57 88/51 92/53 O2 Sat by Pulse 95 93 L Oximetry 12/22/21 12/22/21 12/22/21 09:20 09:50 10:50 Temperature 98.4 F 98.4 F 98.3 F Pulse Rate 89 84 82 Respiratory 18 18 18 Rate Blood Pressure 77/56 85/50 94/60 O2 Sat by Pulse Oximetry 12/22/21 12/22/21 12/22/21 12:55 12:57 14:00 Temperature 98.4 F 98.5 F 98.0 F Pulse Rate 82 88 88 Respiratory 18 18 18 Rate Blood Pressure 82/52 85/64 92/70 O2 Sat by Pulse 93 L 94 L 98 Oximetry Medical Decision Making - Lab Data Result diagrams: 12/23/21 07:15 12/23/21 07:17 Lab Results 12/21/21 12/21/21 12/21/21 Range/Units 21:45 21:50 22:07 WBC 5.2 (3.8-10.6) k/uL RBC 2.17 L (3.80-5.40) m/uL Hgb 5.5 L* (11.4-16.0) gm/dL Hct 17.9 L* (34.0-46.0) % MCV 82.4 (80.0-100.0) fL MCH 25.4 (25.0-35.0) pg MCHC 30.8 L (31.0-37.0) g/dL RDW 16.1 H (11.5-15.5) % Plt Count 171 (150-450) k/uL MPV 9.2 Neutrophils % (Manual) 72 % Lymphocytes % 20 % Lymphocytes % (Manual) 22 % Monocytes % 6 % Monocytes % (Manual) 4 % Eosinophils % 2 % Eosinophils % (Manual) 2 % Basophils % 0 % Neutrophils # 3.7 (1.3-7.7) k/uL Neutrophils # (Manual) 3.74 (1.3-7.7) k/uL Lymphocytes # 1.0 (1.0-4.8) k/uL Lymphocytes # (Manual) 1.14 (1.0-4.8) k/uL Monocytes # 0.3 (0-1.0) k/uL Monocytes # (Manual) 0.21 (0-1.0) k/uL Eosinophils # 0.1 (0-0.7) k/uL Eosinophils # (Manual) 0.10 (0-0.7) k/uL Basophils # 0.0 (0-0.2) k/uL Nucleated RBCs 0 (0-0) /100 WBC Manual Slide Review Performed Hypochromasia Marked Poikilocytosis Moderate Anisocytosis Slight Ovalocytes Present PT (9.0-12.0) sec INR (<1.2) APTT (22.0-30.0) sec Sodium (137-145) mmol/L Potassium (3.5-5.1) mmol/L Chloride (98-107) mmol/L Carbon Dioxide (22-30) mmol/L Anion Gap mmol/L BUN (7-17) mg/dL Creatinine (0.52-1.04) mg/dL Est GFR (CKD-EPI)AfAm (>60 ml/min/1.73 sqM) Est GFR (CKD-EPI)NonAf (>60 ml/min/1.73 sqM) Glucose (74-99) mg/dL Plasma Lactic Acid Cheikh (0.7-2.0) mmol/L Calcium (8.4-10.2) mg/dL Total Bilirubin (0.2-1.3) mg/dL AST (14-36) U/L ALT (4-34) U/L Alkaline Phosphatase (38-126) U/L Troponin I (0.000-0.034) ng/mL Total Protein (6.3-8.2) g/dL Albumin (3.5-5.0) g/dL Blood Type O Positive Blood Type Confirm O Positive Blood Type Recheck No Previous Record Bld Type Recheck Status CABO Indicated Antibody Screen NEGATIVE Crossmatch See Detail Spec Expiration Date 12/24/2021 - 234412/21/21 12/21/21 12/21/21 Range/Units 22:07 22:07 22:07 WBC (3.8-10.6) k/uL RBC (3.80-5.40) m/uL Hgb (11.4-16.0) gm/dL Hct (34.0-46.0) % MCV (80.0-100.0) fL MCH (25.0-35.0) pg MCHC (31.0-37.0) g/dL RDW (11.5-15.5) % Plt Count (150-450) k/uL MPV Neutrophils % (Manual) % Lymphocytes % % Lymphocytes % (Manual) % Monocytes % % Monocytes % (Manual) % Eosinophils % % Eosinophils % (Manual) % Basophils % % Neutrophils # (1.3-7.7) k/uL Neutrophils # (Manual) (1.3-7.7) k/uL Lymphocytes # (1.0-4.8) k/uL Lymphocytes # (Manual) (1.0-4.8) k/uL Monocytes # (0-1.0) k/uL Monocytes # (Manual) (0-1.0) k/uL Eosinophils # (0-0.7) k/uL Eosinophils # (Manual) (0-0.7) k/uL Basophils # (0-0.2) k/uL Nucleated RBCs (0-0) /100 WBC Manual Slide Review Hypochromasia Poikilocytosis Anisocytosis Ovalocytes PT 10.7 (9.0-12.0) sec INR 1.0 (<1.2) APTT 21.6 L (22.0-30.0) sec Sodium 135 L (137-145) mmol/L Potassium 3.4 L (3.5-5.1) mmol/L Chloride 100 (98-107) mmol/L Carbon Dioxide 29 (22-30) mmol/L Anion Gap 6 mmol/L BUN 24 H (7-17) mg/dL Creatinine 1.30 H (0.52-1.04) mg/dL Est GFR (CKD-EPI)AfAm 53 (>60 ml/min/1.73 sqM) Est GFR (CKD-EPI)NonAf 46 (>60 ml/min/1.73 sqM) Glucose 102 H (74-99) mg/dL Plasma Lactic Acid Cheikh 1.3 (0.7-2.0) mmol/L Calcium 8.5 (8.4-10.2) mg/dL Total Bilirubin 0.4 (0.2-1.3) mg/dL AST 40 H (14-36) U/L ALT 21 (4-34) U/L Alkaline Phosphatase 79 (38-126) U/L Troponin I (0.000-0.034) ng/mL Total Protein 6.4 (6.3-8.2) g/dL Albumin 3.6 (3.5-5.0) g/dL Blood Type Blood Type Confirm Blood Type Recheck Bld Type Recheck Status Antibody Screen Crossmatch Spec Expiration Date 12/21/21 Range/Units 22:07 WBC (3.8-10.6) k/uL RBC (3.80-5.40) m/uL Hgb (11.4-16.0) gm/dL Hct (34.0-46.0) % MCV (80.0-100.0) fL MCH (25.0-35.0) pg MCHC (31.0-37.0) g/dL RDW (11.5-15.5) % Plt Count (150-450) k/uL MPV Neutrophils % (Manual) % Lymphocytes % % Lymphocytes % (Manual) % Monocytes % % Monocytes % (Manual) % Eosinophils % % Eosinophils % (Manual) % Basophils % % Neutrophils # (1.3-7.7) k/uL Neutrophils # (Manual) (1.3-7.7) k/uL Lymphocytes # (1.0-4.8) k/uL Lymphocytes # (Manual) (1.0-4.8) k/uL Monocytes # (0-1.0) k/uL Monocytes # (Manual) (0-1.0) k/uL Eosinophils # (0-0.7) k/uL Eosinophils # (Manual) (0-0.7) k/uL Basophils # (0-0.2) k/uL Nucleated RBCs (0-0) /100 WBC Manual Slide Review Hypochromasia Poikilocytosis Anisocytosis Ovalocytes PT (9.0-12.0) sec INR (<1.2) APTT (22.0-30.0) sec Sodium (137-145) mmol/L Potassium (3.5-5.1) mmol/L Chloride (98-107) mmol/L Carbon Dioxide (22-30) mmol/L Anion Gap mmol/L BUN (7-17) mg/dL Creatinine (0.52-1.04) mg/dL Est GFR (CKD-EPI)AfAm (>60 ml/min/1.73 sqM) Est GFR (CKD-EPI)NonAf (>60 ml/min/1.73 sqM) Glucose (74-99) mg/dL Plasma Lactic Acid Cheikh (0.7-2.0) mmol/L Calcium (8.4-10.2) mg/dL Total Bilirubin (0.2-1.3) mg/dL AST (14-36) U/L ALT (4-34) U/L Alkaline Phosphatase (38-126) U/L Troponin I <0.012 (0.000-0.034) ng/mL Total Protein (6.3-8.2) g/dL Albumin (3.5-5.0) g/dL Blood Type Blood Type Confirm Blood Type Recheck Bld Type Recheck Status Antibody Screen Crossmatch Spec Expiration Date - EKG Data -: EKG Interpreted by Me EKG shows normal: sinus rhythm, axis (Normal), intervals (Normal), QRS complexes (Normal), ST-T waves (Normal) Rate: normal (Rate 94 bpm) Interpretation: normal EKG Disposition Clinical Impression: GI bleeding, Anemia Disposition: ADMITTED IP TO THIS HOSP Condition: Stable Is patient prescribed a controlled substance at d/c from ED?: No
[2021-12-21 22:41] LABS: Prothrombin Time 10.7 sec (9.0-12.0)
[2021-12-21 22:43] LABS: Partial Thromboplastin Time 21.6 sec (22.0-30.0)
[2021-12-21 22:45] LABS: Anisocytosis Slight; Basophils % (A) 0 %; Eosinophils # (A) 0.1 k/uL (0-0.7); Eosinophils % (A) 2 %; Hypochromasia Marked; Lymphocytes % (A) 20 %; MCH 25.4 pg (25.0-35.0); MCHC 30.8 g/dL (31.0-37.0); MCV 82.4 fL (80.0-100.0); Mean Platelet Volume 9.2; Monocytes # (A) 0.3 k/uL (0-1.0); Monocytes % (A) 6 %; Neutrophils # (A) 3.7 k/uL (1.3-7.7); Platelet Count 171 k/uL (150-450); Poikilocytosis Moderate; RBC 2.17 m/uL (3.80-5.40); RDW 16.1 % (11.5-15.5); WBC 5.2 k/uL (3.8-10.6)
[2021-12-21 23:00] LABS: HGB 5.5 gm/dL (11.4-16.0)
[2021-12-21 23:01] LABS: HCT 17.9 % (34.0-46.0)
[2021-12-21 23:09] LABS: Lymphocytes # (M) 1.14 k/uL (1.0-4.8); Monocytes # (M) 0.21 k/uL (0-1.0); Neutrophils # (M) 3.74 k/uL (1.3-7.7); Neutrophils % (M) 72 %; Nucleated Red Blood Cells 0 /100 WBC (0-0); Total Cells Counted 100
[2021-12-21 23:10] LABS: Ovalocytes Present
[2021-12-22] MEDS ORDERED: NALOXONE 0.4 MG/ML 1 ML VIAL IV PRN (01:18)
[2021-12-22] MEDS ORDERED: ALBUTEROL NEBULIZED 2.5 MG/3 ML INHALATION PRN (01:24)
[2021-12-22] MEDS: SODIUM CHLORIDE 0.9% 1,000 ML IV SCH ×3 (03:10→17:08)
[2021-12-22 08:04] LABS: Anisocytosis Slight; Hypochromasia Marked; MCH 25.3 pg (25.0-35.0); MCV 81.7 fL (80.0-100.0); Mean Platelet Volume 9.3; Platelet Count 123 k/uL (150-450); Poikilocytosis Moderate; RBC 2.34 m/uL (3.80-5.40); WBC 3.2 k/uL (3.8-10.6)
[2021-12-22 08:19] LABS: HCT 19.1 % (34.0-46.0); HGB 5.9 gm/dL (11.4-16.0)
[2021-12-22] MEDS: traMADol 50 MG TAB PO SCH ×3 (08:35→22:09)
[2021-12-22] MEDS: ALPRAZolam 1 MG TAB PO SCH ×3 (08:35→22:09)
[2021-12-22] MEDS: MONTELUKAST 10 MG TAB PO SCH (08:36)
[2021-12-22] MEDS ORDERED: PANTOPRAZOLE 40 MG/10 ML VIAL IV SCH (09:00)
[2021-12-22] MEDS: CYCLOBENZAPRINE 5 MG TAB PO SCH ×2 (09:20→20:40)
[2021-12-22] MEDS: NORTRIPTYLINE 10 MG CAP PO SCH (09:20)
--- NOTE | 2021-12-22 10:57 | P.HPIM ---
History of Present Illness H&P Date: 12/22/21 HISTORY OF PRESENT ILLNESS This is a 56-year-old female patient of Dr. Haskins with past medical history of diabetes mellitus type 2, COPD, generalized osteoarthritis, cirrhosis of the liver and varices who alcoholic, history of previous GI bleed, generalized anxiety disorder. Patient had EGD done 09/[address] Brambila which revealed mild gastritis. No varices or other abnormalities of the esophagus and biopsies were negative. Patient's last ultrasound on 11/17/2021 revealed hepatocellular disease. No abnormal biliary dilatation. No focal ascites. Patient gives history of having black stools for the past 3 weeks but she wanted to go to [place] which was planned to visit her daughter who she has not seen in 5 years so she did not want to seek treatment. She returned to [place] but then went camping and states that she had carbon monoxide poisoning while she was camping but still did not seek treatment. She states she's had lightheadedness and dizziness with a syncopal episode which she thought was related to the carbon monoxide poisoning. She complains of some shortness of breath, no chest pain. She states that she has had black stools in the past of an intermittent lasting maybe 4 days at a time and resolves on its own. She also states that she perked up some blood the other day. Patient states she has abdominal pain all the time. She talked to Dr. Snowden and he ordered blood work found that her hemoglobin was 5.3 and she was sent into the hospital for further evaluation. Patient presented to [facility] emergency center and found to be afebrile, heart rate 106, blood pressure 101/62, pulse ox 95% on room air. EKG sinus rhythm with no acute ST changes. Sodium 135, potassium 3.4, chloride 100, CO2 29, BUN 24 and creatinine 1.3. Lactic acid 1.3. AST 40 otherwise liver function tests were normal. Hemoglobin 5.5, WBC 5.2, platelet count 171. Patient was transfused 1 unit of packed RBCs and repeat blood work reveals hemoglobin of 5.9 and thus a second unit of packed RBCs ordered. Dr. Snowden and Dr. Monroe are on consult. Patient is scheduled for EGD. REVIEW OF SYSTEMS Constitutional: No fever, no chills, no night sweats. No weight change. Reports weakness, Reports fatigue no lethargy. No daytime sleepiness. EENT: No headache. No blurred vision or double vision, no loss of vision. No loss of Hearing, no ringing in the ears, no dizziness. No nasal drainage or congestion. No epistaxis. No sore throat. Lungs: Reports shortness of breath, cough, no sputum production. No wheezing. Reports shortness of breath with exertion Cardiovascular: No chest pain, no lower extremity edema. No palpitations. No paroxysmal nocturnal dyspnea. No orthopnea. No lightheadedness or dizziness. No syncopal episodes. Abdominal: No abdominal pain. No nausea, vomiting. No diarrhea. No constipation. Reports tarry stools. No loss of appetite. Genitourinary: No dysuria, increased frequency, urgency. No urinary retention. Musculoskeletal: No myalgias. No muscle weakness, no gait dysfunction, no frequent falls. No back pain. No neck pain. Integumentary: No wounds, no lesions. No rash or pruritus. No unusual bruising. No change in hair or nails. Neurologic: No aphasia. No facial droop. No change in mentation. No head injury. No headache. No paralysis. No paresthesia. Psychiatric: No depression. No anxiety. No mood swings. Endocrine: No abnormal blood sugars. No weight change. No excessive sweating or thirst. No cold intolerance. SOCIAL HISTORY Patient was a smoker of 2 packs per day for 30 years and now is using e- cigarette/vaping. The patient states that she only drank alcohol only on the weekends but quit in 2019 Patient is and lives at home with her . 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 FAMILY HISTORY Mother is alive at age 78 with history of coronary artery disease and thyroid. Father at age 77 from a throat abscess. Patient has one sister alive with history of thyroid disease. She has 3 children with no major medical problems. PHYSICAL EXAMINATION Gen: This is this is a thin 56-year-old female. Patient is resting on ER stretch and appears to be comfortable and in no acute distress. HEENT: Head is atraumatic, normocephalic. Pupils equal, round. Sclerae is anicteric. NECK: Supple. No JVD. No lymphadenopathy. No thyromegaly. LUNGS: Clear to auscultation. No wheezes or rhonchi. No intercostal retractions. HEART: Regular rate and rhythm. Systolic murmur. ABDOMEN: Soft. Bowel sounds are present. No masses. Mild generalized tenderness. EXTREMITIES: No pedal edema. No calf tenderness. Dorsalis pedis +2 bilaterally. NEUROLOGICAL: Patient is awake, alert and oriented x3. Cranial nerves 2 through 12 are grossly intact. ASSESSMENT AND PLAN 1. Acute GI bleed suspect upper GI bleed. Patient to be admitted to the intensive care unit. Consult with general surgery and patient is scheduled for EGD today. 2. Acute blood loss anemia. Patient is status post transfusion 1 unit of packed RBCs and second unit ordered. Continue to monitor CBC closely scheduled every 6 hours and transfuse as indicated.. 3. Diabetes mellitus type 2, diet controlled. Patient will be started on NovoLog scale before meals and at bedtime. 4. Hypotension most likely secondary to acute GI bleed. Continue IV fluids 0.9 normal saline at 130 mL per hour. 5. Alcoholic liver cirrhosis. Aldactone 25 mg twice daily, Demadex 20 mg daily, lactulose 20 g 3 times daily on hold due to hypotension and GI bleed. 6. Gastroesophageal reflux disease. Continue Protonix 40 mg IV. 7. COPD. Continue albuterol inhaler as needed and Singulair 10 mg at bedtime. 8. Recurrent depression and generalized anxiety disorder. Continue Xanax 1 mg 3 times daily, Pamelor 10 mg daily. 9. Chronic back pain. Continue Flexeril 5 mg twice daily, tramadol 50 mg 3 times daily. 10. Chronic kidney disease stage III. Consult with nephrology. 11. DVT prophylaxis. SCDs and CANDIDO shaikh. Patient will be admitted to the hospital for a minimum of 2 night stay. CODE STATUS: Full code DISCHARGE PLAN Home. Impression and plan of care have been directed as dictated by the signing physician. Demi Vasquez nurse practitioner acting as scribe for signing physician. Past Medical History Past Medical History: Asthma, Coronary Artery Disease (CAD), COPD, Diabetes Mellitus, GERD/Reflux, Hyperlipidemia, Hypertension, Liver Disease, Mitral Valve Prolapse (MVP), Osteoarthritis (OA), Renal Disease Additional Past Medical History / Comment(s): scoliosis , herniated disc in neck. Diet controlled DM. STAGE 3A KIDNEY DISEASE History of Any Multi-Drug Resistant Organisms: None Reported Past Surgical History: Breast Surgery, Hysterectomy, Joint Replacement, Orthopedic Surgery Additional Past Surgical History / Comment(s): Total L knee arthroplasty, LT BREAST LUMPECTOMY, REPAIR FX STERNUM, REPAIR FX RT FEMUR, shannon knee arthroscopy, Paracentesis, EGD. PAIN CLINIC PROCEDURES IN THE PAST Past Anesthesia/Blood Transfusion Reactions: No Reported Reaction Past Psychological History: Anxiety, Depression Additional Psychological History / Comment(s): Pt resides with spouse Smoking Status: Current every day smoker, Vaper Past Alcohol Use History: None Reported Additional Past Alcohol Use History / Comment(s): Former smoker - smoked for 35 years. Quit drinking-SMOKING on 2018. Past Drug Use History: None Reported Additional Drug Use History / Comment(s): USES CBD CREAM FOR NECK-KNOWS TO REFRAIN FROM USE 24 HOURS PRIOR TO PROCEDURE - Past Family History Mother Family Medical History: Fibromyalgia Medications and Allergies Home Medications Medication Instructions Recorded Confirmed Type Albuterol Sulfate [Proair Hfa] 2 puff INHALATION RT-Q4H PRN 06/21/15 12/21/21 History ALPRAZolam [Xanax] 1 mg PO TID 02/12/19 12/21/21 History traMADol HCl [Ultram] 50 mg PO TID 02/12/19 12/21/21 History Nortriptyline [Pamelor] 10 mg PO DAILY 03/09/21 12/21/21 History Spironolactone [Aldactone] 25 mg PO BID 03/09/21 12/21/21 History Cyclobenzaprine [Flexeril] 5 mg PO BID 03/14/21 12/21/21 History Lidocaine [Lidoderm 5% Patch] 1 patch TRANSDERM DAILY PRN 03/14/21 12/21/21 History Pantoprazole Sodium [Protonix] 40 mg PO DAILY 03/14/21 12/21/21 History Torsemide [Demadex] 20 mg PO DAILY 03/14/21 12/21/21 History Famotidine 40 mg PO HS 12/21/21 12/21/21 History Lactulose 20 gm PO TID 12/21/21 12/21/21 History Linaclotide [Linzess] 145 mcg PO DAILY PRN 12/21/21 12/21/21 History Montelukast Sodium [Singulair] 10 mg PO DAILY 12/21/21 12/21/21 History Potassium Chloride ER [K-Dur 10] 10 meq PO DAILY 12/21/21 12/21/21 History polyethylene glycoL 3350 [Miralax] 17 gm PO DAILY PRN 12/21/21 12/21/21 History Allergies Allergy/AdvReac Type Severity Reaction Status Date / Time propranolol Allergy Unknown Verified 12/21/21 23:28 Physical Exam Vitals: Vital Signs Temp Pulse Resp BP Pulse Ox 12/22/21 07:03 98.3 F 86 16 88/51 93 L 12/22/21 06:29 98.0 F 85 16 90/57 95 12/22/21 05:20 98.2 F 88 16 92/57 95 12/22/21 04:50 98.3 F 92 16 90/51 98 12/22/21 04:40 97.9 F 88 16 82/44 12/22/21 00:54 92 16 106/65 98 12/21/21 22:16 96 18 104/65 100 12/21/21 21:28 98.4 F 106 H 20 101/62 95 Intake and Output 12/21/21 12/22/21 12/22/21 22:59 06:59 14:59 Intake Total 0 310 Balance 0 310 Intake: Blood Product 0 310 Rc As-1 Unit 0 310 [id number] Other: # Voids 0 Weight 65.317 kg 65.317 kg Results CBC & Chem 7: 12/22/21 07:43 12/21/21 22:07 Labs: Abnormal Lab Results - Last 24 Hours (Table) 12/21/21 12/21/21 12/21/21 Range/Units 21:45 22:07 22:07 RBC 2.17 L (3.80-5.40) m/uL Hgb 5.5 L* (11.4-16.0) gm/dL Hct 17.9 L* (34.0-46.0) % MCHC 30.8 L (31.0-37.0) g/dL RDW 16.1 H (11.5-15.5) % APTT 21.6 L (22.0-30.0) sec Sodium (137-145) mmol/L Potassium (3.5-5.1) mmol/L BUN (7-17) mg/dL Creatinine (0.52-1.04) mg/dL Glucose (74-99) mg/dL AST (14-36) U/L Crossmatch See Detail 12/21/21 Range/Units 22:07 RBC (3.80-5.40) m/uL Hgb (11.4-16.0) gm/dL Hct (34.0-46.0) % MCHC (31.0-37.0) g/dL RDW (11.5-15.5) % APTT (22.0-30.0) sec Sodium 135 L (137-145) mmol/L Potassium 3.4 L (3.5-5.1) mmol/L BUN 24 H (7-17) mg/dL Creatinine 1.30 H (0.52-1.04) mg/dL Glucose 102 H (74-99) mg/dL AST 40 H (14-36) U/L Crossmatch
[2021-12-22] MEDS ORDERED: POTASSIUM CHLORIDE ER 20 MEQ TAB.ER PO STA (11:15)
--- NOTE | 2021-12-22 11:18 | P.GSCN ---
History of Present Illness Consult date: 12/22/21 History of present illness: CHIEF COMPLAINT: Black stools HISTORY OF PRESENT ILLNESS: This is a 56-year-old female who presented to the hospital with complaints of black stools 3 weeks. She also was noted to have a hemoglobin of 5.3 in the outpatient setting and her PCP told her to come to the ER for evaluation. Patient received a unit of blood. Hemoglobin has come up to 5.9 and she is scheduled for another unit of blood today. Patient does have prior history of peptic ulcer disease and esophageal varices. She has history of liver cirrhosis and alcohol abuse. Patient reports the last time she had any alcohol was about 2 years ago. Patient complains of epigastric and left upper quadrant pain. Pain does occur after eating. She describes the pain as a fire- like sensation. Patient also reports that she burped up a small amount of blood 2 days ago. Her last EGD was in September 2020 which had shown gastritis and no varices. Patient has been hypotensive as well. She is receiving IV fluids. She is on IV Protonix. Patient denies any NSAID use or blood thinners. Patient does admit to having shortness of breath and fatigue. PAST MEDICAL HISTORY: Cholelithiasis, liver cirrhosis, prior alcohol use, chronic kidney disease, COPD, diabetes mellitus, coronary artery disease PAST SURGICAL HISTORY: Hysterectomy MEDICATIONS: See list. ALLERGIES: See list. SOCIAL HISTORY: No illicit drug use. REVIEW OF SYSTEMS: CONSTITUTIONAL: Denies fever or chills. HEENT: Denies blurred vision, vision changes, or eye pain. Denies hemoptysis ENDOCRINE: Denies heat or cold intolerance. CARDIOVASCULAR: Denies chest pain or pressure. RESPIRATORY: No shortness of breath. GASTROINTESTINAL: Please refer to HPI NEURO: Denies history of seizures. PSYCH: No depression or suicidal ideation HEMATOLOGIC: Denies bleeding disorders. LYMPHATIC: The patient denies any lumps and bumps around the neck. GENITOURINARY: Denies any blood in urine or increased urinary frequency. MUSCULOSKELETAL: Denies myalgias. Denies joint swelling. Denies decreased range of motion beyond patients baseline. SKIN: Denies pruitis. Denies rash. PHYSICAL EXAM: VITAL SIGNS: Reviewed GENERAL: Well-developed in no acute distress. HEENT: No sclera icterus. Extraocular movements grossly intact. Moist buccal mucosa. Head is atraumatic, normocephalic. Hears conversational speech. No nasal drainage. NECK: Supple without lymphadenopathy. CHEST: Non-labored respirations and equal bilateral excursions. CARDIOVASCULAR: Palpable 2+ radial pulses. ABDOMEN: Soft. Nondistended. Tenderness with palpation of epigastric left upper quadrant MUSCULOSKELETAL: No clubbing or cyanosis. NEUROLOGIC: No focal or lateralizing signs. Cranial nerves II through XII grossly intact. PSYCH: Appropriate affect. Alert and oriented to person, place and time. SKIN: Well perfused. Good skin turgor. LABORATORY DATA: WBC 3.2 hemoglobin 5.3-5.9 platelets 123 Sodium 135 potassium 3.4 creatinine 1.30 Lactic acid 1.3 Total bili 0.4 AST 40 ALT 21 alk phos 79 troponin negative EKG normal sinus rhythm IMAGING: ASSESSMENT: 1. Acute GI bleed with black stools 2. Acute blood loss anemia requiring blood transfusion 3. Hypotension 4. History of peptic ulcer disease and esophageal varices 5. Alcohol liver cirrhosis 6. COPD 7. History of chronic kidney disease 8. Hypokalemia PLAN: -Patient scheduled for EGD today with Dr. Monroe -Keep patient nothing by mouth -Agree with blood transfusion -Continue IV fluids -Continue IV Protonix -Continue to monitor for signs and symptoms bleeding -Continue to monitor hemoglobin Thank you for this consultation Physician [employer] Librarian note has been reviewed by physician. Signing provider agrees with the documented findings, assessment, and plan of care. Past Medical History Past Medical History: Asthma, Coronary Artery Disease (CAD), COPD, Diabetes Mellitus, GERD/Reflux, Hyperlipidemia, Hypertension, Liver Disease, Mitral Valve Prolapse (MVP), Osteoarthritis (OA), Renal Disease Additional Past Medical History / Comment(s): scoliosis , herniated disc in ne ck. Diet controlled DM. STAGE 3A KIDNEY DISEASE History of Any Multi-Drug Resistant Organisms: None Reported Past Surgical History: Breast Surgery, Hysterectomy, Joint Replacement, Orthopedic Surgery Additional Past Surgical History / Comment(s): Total L knee arthroplasty, LT BREAST LUMPECTOMY, REPAIR FX STERNUM, REPAIR FX RT FEMUR, shannon knee arthroscopy, Paracentesis, EGD. PAIN CLINIC PROCEDURES IN THE PAST Past Anesthesia/Blood Transfusion Reactions: No Reported Reaction Past Psychological History: Anxiety, Depression Additional Psychological History / Comment(s): Pt resides with spouse Smoking Status: Current every day smoker, Vaper Past Alcohol Use History: None Reported Additional Past Alcohol Use History / Comment(s): Former smoker - smoked for 35 years. Quit drinking-SMOKING on 2018. Past Drug Use History: None Reported Additional Drug Use History / Comment(s): USES CBD CREAM FOR NECK-KNOWS TO RE FRAIN FROM USE 24 HOURS PRIOR TO PROCEDURE - Past Family History Mother Family Medical History: Fibromyalgia Medications and Allergies Home Medications Medication Instructions Recorded Confirmed Type Albuterol Sulfate [Proair Hfa] 2 puff INHALATION RT-Q4H PRN 06/21/15 12/21/21 History ALPRAZolam [Xanax] 1 mg PO TID 02/12/19 12/21/21 History traMADol HCl [Ultram] 50 mg PO TID 02/12/19 12/21/21 History Nortriptyline [Pamelor] 10 mg PO DAILY 03/09/21 12/21/21 History Spironolactone [Aldactone] 25 mg PO BID 03/09/21 12/21/21 History Cyclobenzaprine [Flexeril] 5 mg PO BID 03/14/21 12/21/21 History Lidocaine [Lidoderm 5% Patch] 1 patch TRANSDERM DAILY PRN 03/14/21 12/21/21 History Pantoprazole Sodium [Protonix] 40 mg PO DAILY 03/14/21 12/21/21 History Torsemide [Demadex] 20 mg PO DAILY 03/14/21 12/21/21 History Famotidine 40 mg PO HS 12/21/21 12/21/21 History Lactulose 20 gm PO TID 12/21/21 12/21/21 History Linaclotide [Linzess] 145 mcg PO DAILY PRN 12/21/21 12/21/21 History Montelukast Sodium [Singulair] 10 mg PO DAILY 12/21/21 12/21/21 History Potassium Chloride ER [K-Dur 10] 10 meq PO DAILY 12/21/21 12/21/21 History polyethylene glycoL 3350 [Miralax] 17 gm PO DAILY PRN 12/21/21 12/21/21 History Allergies Allergy/AdvReac Type Severity Reaction Status Date / Time propranolol Allergy Unknown Verified 12/21/21 23:28 Surgical - Exam Vital Signs Temp Pulse Resp BP Pulse Ox 98.4 F 106 H 20 101/62 95 12/21/21 21:28 12/21/21 21:28 12/21/21 21:28 12/21/21 21:28 12/21/21 21:28 Results - Labs 12/22/21 07:43 12/21/21 22:07 Abnormal Lab Results - Last 24 Hours (Table) 12/21/21 12/21/21 12/21/21 Range/Units 21:45 22:07 22:07 WBC (3.8-10.6) k/uL RBC 2.17 L (3.80-5.40) m/uL Hgb 5.5 L* (11.4-16.0) gm/dL Hct 17.9 L* (34.0-46.0) % MCHC 30.8 L (31.0-37.0) g/dL RDW 16.1 H (11.5-15.5) % Plt Count (150-450) k/uL APTT 21.6 L (22.0-30.0) sec Sodium (137-145) mmol/L Potassium (3.5-5.1) mmol/L BUN (7-17) mg/dL Creatinine (0.52-1.04) mg/dL Glucose (74-99) mg/dL AST (14-36) U/L Crossmatch See Detail 12/21/21 12/22/21 Range/Units 22:07 07:43 WBC 3.2 L (3.8-10.6) k/uL RBC 2.34 L (3.80-5.40) m/uL Hgb 5.9 L* (11.4-16.0) gm/dL Hct 19.1 L* (34.0-46.0) % MCHC (31.0-37.0) g/dL RDW 17.0 H (11.5-15.5) % Plt Count 123 L (150-450) k/uL APTT (22.0-30.0) sec Sodium 135 L (137-145) mmol/L Potassium 3.4 L (3.5-5.1) mmol/L BUN 24 H (7-17) mg/dL Creatinine 1.30 H (0.52-1.04) mg/dL Glucose 102 H (74-99) mg/dL AST 40 H (14-36) U/L Crossmatch Diabetes panel 12/21/21 Range/Units 22:07 Sodium 135 L (137-145) mmol/L Potassium 3.4 L (3.5-5.1) mmol/L Chloride 100 (98-107) mmol/L Carbon Dioxide 29 (22-30) mmol/L BUN 24 H (7-17) mg/dL Creatinine 1.30 H (0.52-1.04) mg/dL Glucose 102 H (74-99) mg/dL Calcium 8.5 (8.4-10.2) mg/dL AST 40 H (14-36) U/L ALT 21 (4-34) U/L Alkaline Phosphatase 79 (38-126) U/L Total Protein 6.4 (6.3-8.2) g/dL Albumin 3.6 (3.5-5.0) g/dL Calcium panel 12/21/21 Range/Units 22:07 Calcium 8.5 (8.4-10.2) mg/dL Albumin 3.6 (3.5-5.0) g/dL Pituitary panel 12/21/21 Range/Units 22:07 Sodium 135 L (137-145) mmol/L Potassium 3.4 L (3.5-5.1) mmol/L Chloride 100 (98-107) mmol/L Carbon Dioxide 29 (22-30) mmol/L BUN 24 H (7-17) mg/dL Creatinine 1.30 H (0.52-1.04) mg/dL Glucose 102 H (74-99) mg/dL Calcium 8.5 (8.4-10.2) mg/dL Adrenal panel 12/21/21 Range/Units 22:07 Sodium 135 L (137-145) mmol/L Potassium 3.4 L (3.5-5.1) mmol/L Chloride 100 (98-107) mmol/L Carbon Dioxide 29 (22-30) mmol/L BUN 24 H (7-17) mg/dL Creatinine 1.30 H (0.52-1.04) mg/dL Glucose 102 H (74-99) mg/dL Calcium 8.5 (8.4-10.2) mg/dL Total Bilirubin 0.4 (0.2-1.3) mg/dL AST 40 H (14-36) U/L ALT 21 (4-34) U/L Alkaline Phosphatase 79 (38-126) U/L Total Protein 6.4 (6.3-8.2) g/dL Albumin 3.6 (3.5-5.0) g/dL
--- NOTE | 2021-12-22 11:48 | P.NPCON ---
History of Present Illness - Reason for Consult acute renal failure - History of Present Illness Patient is a 56-year-old female with history of chronic kidney disease NKF stage IIIB with previous creatinine about 1.1-1.2 mg/dL. Etiology is nephrosclerosis. Patient is admitted to the hospital with increased weakness and history of black stools Patient is noted to have a hemoglobin of 5.5 g/dL. She does have a history of gastric ulcer Patient is receiving packed RBCs and is scheduled for EGD today. Serum creatinine 1.3 mg/dL. No significant urinary symptoms Blood pressure has been low with systolic in the 70s and 80s. Review of Systems As per HPI Past Medical History Past Medical History: Asthma, Coronary Artery Disease (CAD), COPD, Diabetes Mellitus, GERD/Reflux, Hyperlipidemia, Hypertension, Liver Disease, Mitral Valve Prolapse (MVP), Osteoarthritis (OA), Renal Disease Additional Past Medical History / Comment(s): scoliosis , herniated disc in neck. Diet controlled DM. STAGE 3A KIDNEY DISEASE History of Any Multi-Drug Resistant Organisms: None Reported Past Surgical History: Breast Surgery, Hysterectomy, Joint Replacement, Orthopedic Surgery Additional Past Surgical History / Comment(s): Total L knee arthroplasty, LT BREAST LUMPECTOMY, REPAIR FX STERNUM, REPAIR FX RT FEMUR, shannon knee arthroscopy, Paracentesis, EGD. PAIN CLINIC PROCEDURES IN THE PAST Past Anesthesia/Blood Transfusion Reactions: No Reported Reaction Past Psychological History: Anxiety, Depression Additional Psychological History / Comment(s): Pt resides with spouse Smoking Status: Current every day smoker, Vaper Past Alcohol Use History: None Reported Additional Past Alcohol Use History / Comment(s): Former smoker - smoked for 35 years. Quit drinking-SMOKING on 2018. Past Drug Use History: None Reported Additional Drug Use History / Comment(s): USES CBD CREAM FOR NECK-KNOWS TO REFRAIN FROM USE 24 HOURS PRIOR TO PROCEDURE - Past Family History Mother Family Medical History: Fibromyalgia Medications and Allergies Home Medications Medication Instructions Recorded Confirmed Type Albuterol Sulfate [Proair Hfa] 2 puff INHALATION RT-Q4H PRN 06/21/15 12/21/21 History ALPRAZolam [Xanax] 1 mg PO TID 02/12/19 12/21/21 History traMADol HCl [Ultram] 50 mg PO TID 02/12/19 12/21/21 History Nortriptyline [Pamelor] 10 mg PO DAILY 03/09/21 12/21/21 History Spironolactone [Aldactone] 25 mg PO BID 03/09/21 12/21/21 History Cyclobenzaprine [Flexeril] 5 mg PO BID 03/14/21 12/21/21 History Lidocaine [Lidoderm 5% Patch] 1 patch TRANSDERM DAILY PRN 03/14/21 12/21/21 History Pantoprazole Sodium [Protonix] 40 mg PO DAILY 03/14/21 12/21/21 History Torsemide [Demadex] 20 mg PO DAILY 03/14/21 12/21/21 History Famotidine 40 mg PO HS 12/21/21 12/21/21 History Lactulose 20 gm PO TID 12/21/21 12/21/21 History Linaclotide [Linzess] 145 mcg PO DAILY PRN 12/21/21 12/21/21 History Montelukast Sodium [Singulair] 10 mg PO DAILY 12/21/21 12/21/21 History Potassium Chloride ER [K-Dur 10] 10 meq PO DAILY 12/21/21 12/21/21 History polyethylene glycoL 3350 [Miralax] 17 gm PO DAILY PRN 12/21/21 12/21/21 History Allergies Allergy/AdvReac Type Severity Reaction Status Date / Time propranolol Allergy Unknown Verified 12/21/21 23:28 Physical Exam Vitals: Vital Signs Temp Pulse Resp BP Pulse Ox 12/22/21 09:50 98.4 F 84 18 85/50 12/22/21 09:20 98.4 F 89 18 77/56 12/22/21 09:10 98.3 F 85 16 92/53 12/22/21 07:03 98.3 F 86 16 88/51 93 L 12/22/21 06:29 98.0 F 85 16 90/57 95 12/22/21 05:20 98.2 F 88 16 92/57 95 12/22/21 04:50 98.3 F 92 16 90/51 98 12/22/21 04:40 97.9 F 88 16 82/44 12/22/21 00:54 92 16 106/65 98 12/21/21 22:16 96 18 104/65 100 12/21/21 21:28 98.4 F 106 H 20 101/62 95 Intake and Output 12/21/21 12/22/21 12/22/21 22:59 06:59 14:59 Intake Total 0 310 Balance 0 310 Intake: Blood Product 0 310 Rc As-1 Unit 0 310 [id number] Rc Cpda-1 Unit 0 [id number] Other: # Voids 0 Weight 65.317 kg 65.317 kg Patient is awake, comfortable, not in any acute distress Alert oriented 3 Examination of the heart S1 and S2 Examination of the lungs bilateral breath sounds are heard Abdomen is soft nontender Examination of lower extremity shows no evidence of edema FENCE [employer]IVER exam grossly intact Results - Lab Results Most recent lab results Calcium 8.5 mg/dL (8.4-10.2) 12/21/21 22:07 12/22/21 07:43 12/21/21 22:07 Assessment and Plan Assessment: 1. Acute kidney injury mostly prerenal associated with severe anemia and hypotension currently nonoliguric 2. Severe anemia associated with GI bleed, receiving packed RBCs transfusion and going for EGD 3. Hypotension secondary to severe anemia and hypovolemia 4. Chronic liver disease, EtOH liver related Plan: Packed RBCs transfusion Maintain IV fluids Repeat labs in a.m. Continue to hold off on diuretics
[2021-12-22] MEDS: INSULIN ASPART (NovoLOG) 100 UNIT/ML VIAL SQ SCH ×3 (12:44→20:37)
[2021-12-22 13:00] LABS: Glucose,Whole Blood 82 mg/dL (75-99)
--- NOTE | 2021-12-22 14:11 | P.CNPUL ---
History of Present Illness Consult date: 12/22/21 Requesting physician: Dajuan Haskins Reason for consult: other Chief complaint: GI bleed. History of present illness: Pulmonary consultation dated 12/22/2021. 56-year-old female with history of chronic liver disease, which she says, was caused by excessive Tylenol and Motrin, after a fractured leg, who comes into the emergency room complaining of a low hemoglobin. 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 She was told to come to the emergency room to be evaluated. She does admit to burping up some bright red blood, and also, for the last 2 or 3 weeks, having black tarry stools. No hematochezia. The patient has been feeling weak and fatigue, and does have some mild shortness of breath on exertion. She also has been having some abdominal pain. Today in the emergency room, her hemoglobin is initially 5.5, and repeat was 5.9. She did receive 2 units of blood. She is on room air. The patient's getting saline at 130 mL an hour. White count 3.2, hematocrit 19 1, and platelet count 223,000. The patient's PTT was 21.6. Sodium 135, potassium 3.4, chlorides 100, CO2 29, with a BUN and creatinine of 24 and 1.0 respectively. Glucose 102. AST was 40 he was 21. Albumin was 3.6. The patient's primary care physician is Dr. Haskins. She also sees Dr. Gramajo in gastroenterology and also Dr. Snowden in nephrology. The patient always runs a very low blood pressure, and has been given midodrine in the past. Review of Systems REVIEW OF SYSTEMS: CONSTITUTIONAL: Weakness. NEUROLOGIC: [ Negative.] HEENT: [ Negative.] CARDIAC: [Negative.] PULMONARY: Mild shortness of breath on exertion. GI: Hematemesis, and melena : [Negative.] RHEUMATOLOGIC: [ Negative.] IMMUNOLOGIC: [ Negative.] ENDOCRINE: [Negative. ] DERMATOLOGIC: [Negative.] Past Medical History Past Medical History: Asthma, Coronary Artery Disease (CAD), COPD, Diabetes Mellitus, GERD/Reflux, Hyperlipidemia, Hypertension, Liver Disease, Mitral Valve Prolapse (MVP), Osteoarthritis (OA), Renal Disease Additional Past Medical History / Comment(s): scoliosis , herniated disc in neck. Diet controlled DM. STAGE 3A KIDNEY DISEASE History of Any Multi-Drug Resistant Organisms: None Reported Past Surgical History: Breast Surgery, Hysterectomy, Joint Replacement, Orthopedic Surgery Additional Past Surgical History / Comment(s): Total L knee arthroplasty, LT BREAST LUMPECTOMY, REPAIR FX STERNUM, REPAIR FX RT FEMUR, shannon knee arthroscopy, Paracentesis, EGD. PAIN CLINIC PROCEDURES IN THE PAST Past Anesthesia/Blood Transfusion Reactions: No Reported Reaction Past Psychological History: Anxiety, Depression Additional Psychological History / Comment(s): Pt resides with spouse Smoking Status: Current every day smoker, Vaper Past Alcohol Use History: None Reported Additional Past Alcohol Use History / Comment(s): Former smoker - smoked for 35 years. Quit drinking-SMOKING on 2018. Past Drug Use History: None Reported Additional Drug Use History / Comment(s): USES CBD CREAM FOR NECK-KNOWS TO REFRAIN FROM USE 24 HOURS PRIOR TO PROCEDURE - Past Family History Mother Family Medical History: Fibromyalgia Medications and Allergies Home Medications Medication Instructions Recorded Confirmed Type Albuterol Sulfate [Proair Hfa] 2 puff INHALATION RT-Q4H PRN 06/21/15 12/21/21 History ALPRAZolam [Xanax] 1 mg PO TID 02/12/19 12/21/21 History traMADol HCl [Ultram] 50 mg PO TID 02/12/19 12/21/21 History Nortriptyline [Pamelor] 10 mg PO DAILY 03/09/21 12/21/21 History Spironolactone [Aldactone] 25 mg PO BID 03/09/21 12/21/21 History Cyclobenzaprine [Flexeril] 5 mg PO BID 03/14/21 12/21/21 History Lidocaine [Lidoderm 5% Patch] 1 patch TRANSDERM DAILY PRN 03/14/21 12/21/21 History Pantoprazole Sodium [Protonix] 40 mg PO DAILY 03/14/21 12/21/21 History Torsemide [Demadex] 20 mg PO DAILY 03/14/21 12/21/21 History Famotidine 40 mg PO HS 12/21/21 12/21/21 History Lactulose 20 gm PO TID 12/21/21 12/21/21 History Linaclotide [Linzess] 145 mcg PO DAILY PRN 12/21/21 12/21/21 History Montelukast Sodium [Singulair] 10 mg PO DAILY 12/21/21 12/21/21 History Potassium Chloride ER [K-Dur 10] 10 meq PO DAILY 12/21/21 12/21/21 History polyethylene glycoL 3350 [Miralax] 17 gm PO DAILY PRN 12/21/21 12/21/21 History Allergies Allergy/AdvReac Type Severity Reaction Status Date / Time propranolol Allergy Unknown Verified 12/21/21 23:28 Physical Exam Osteopathic Statement: *. No significant issues noted on an osteopathic structural exam other than those noted in the History and Physical/Consult. Vitals: Vital Signs Temp Pulse Resp BP Pulse Ox 12/22/21 12:57 98.5 F 88 18 85/64 94 L 12/22/21 12:55 98.4 F 82 18 82/52 93 L 12/22/21 10:50 98.3 F 82 18 94/60 12/22/21 09:50 98.4 F 84 18 85/50 12/22/21 09:20 98.4 F 89 18 77/56 12/22/21 09:10 98.3 F 85 16 92/53 12/22/21 07:03 98.3 F 86 16 88/51 93 L 12/22/21 06:29 98.0 F 85 16 90/57 95 12/22/21 05:20 98.2 F 88 16 92/57 95 12/22/21 04:50 98.3 F 92 16 90/51 98 12/22/21 04:40 97.9 F 88 16 82/44 12/22/21 00:54 92 16 106/65 98 12/21/21 22:16 96 18 104/65 100 12/21/21 21:28 98.4 F 106 H 20 101/62 95 Intake and Output 12/21/21 12/22/21 12/22/21 22:59 06:59 14:59 Intake Total 0 620 Balance 0 620 Intake: Blood Product 0 620 Rc As-1 Unit 0 310 [id number] Rc Cpda-1 Unit 310 [id number] Other: # Voids 0 Weight 65.317 kg 65.317 kg No acute distress, oriented 3. Currently on room air. HEENT examination is grossly unremarkable. Neck supple. Full range of motion. No adenopathy thyromegaly or neck vein distention. Cardiovascular examination reveals regular rhythm rate. S1-S2 normal. No S3 or S4. No discernible murmur noted. Heart rate 88 bpm. Lungs reveal clear breath sounds. Breath sounds are equal bilaterally. No adventitious lung sounds including wheezes rhonchi or crackles. Abdomen soft, with mild tenderness, in the epigastric area and left upper quadrant. Extremities are intact. No cyanosis clubbing or edema. Skin is without rash or lesion. Neurologic examination is brief but nonfocal. Results - Laboratory Findings CBC and BMP: 12/22/21 07:43 12/21/21 22:07 PT/INR, D-dimer PT 10.7 sec (9.0-12.0) 12/21/21 22:07 INR 1.0 (<1.2) 12/21/21 22:07 Abnormal lab findings: Abnormal Labs 12/21/21 12/21/21 12/21/21 21:45 22:07 22:07 WBC RBC 2.17 L Hgb 5.5 L* Hct 17.9 L* MCHC 30.8 L RDW 16.1 H Plt Count APTT 21.6 L Sodium Potassium BUN Creatinine Glucose AST Crossmatch See Detail 12/21/21 12/22/21 22:07 07:43 WBC 3.2 L RBC 2.34 L Hgb 5.9 L* Hct 19.1 L* MCHC RDW 17.0 H Plt Count 123 L APTT Sodium 135 L Potassium 3.4 L BUN 24 H Creatinine 1.30 H Glucose 102 H AST 40 H Crossmatch Assessment and Plan Assessment: Gastrointestinal bleed, with resultant moderately severe anemia. History of chronic liver disease, purportedly from excessive Tylenol/Motrin ingestion. History of CAD. History of COPD/asthma, secondary to previous heavy tobacco use. History of diabetes mellitus. History of GERD. History of hyperlipidemia. History of hypertension. History of mitral valve prolapse History of anxiety/depression. Osteoarthritis. Stage III chronic kidney disease. Plan: Plan dated 12/22/2021. The patient's currently not on any supplemental oxygen. The patient is getting saline at 130 mL an hour. The patient has received 2 units of PRBCs. A repeat hemoglobin is pending. The patient is apparently going to have a endoscopy today, by Dr. Perla. The patient is chronically hypotensive. She has taken midodrine in the past for that. She is not needing an intensive care unit bed. There is no active bleeding at this time. She appears very stable. No additional recommendations are made. No need to see the patient moving forward unless her situation becomes more critical. Time with Patient: Greater than 30
[2021-12-22 14:26] LABS: Anisocytosis Slight; Basophils % (A) 1 %; Eosinophils # (A) 0.1 k/uL (0-0.7); Eosinophils % (A) 2 %; HCT 23.5 % (34.0-46.0); Hypochromasia Marked; Lymphocytes # (A) 0.8 k/uL (1.0-4.8); Lymphocytes % (A) 25 %; MCH 24.7 pg (25.0-35.0); MCHC 29.7 g/dL (31.0-37.0); MCV 83.4 fL (80.0-100.0); Monocytes # (A) 0.2 k/uL (0-1.0); Monocytes % (A) 6 %; Neutrophils # (A) 2.1 k/uL (1.3-7.7); Neutrophils % (A) 65 %; Platelet Count 124 k/uL (150-450); Poikilocytosis Moderate; RBC 2.81 m/uL (3.80-5.40); RDW 16.5 % (11.5-15.5); WBC 3.2 k/uL (3.8-10.6)
[2021-12-22] MEDS ORDERED: PROPOFOL 10 MG/ML 20 ML VIAL IV ONE (15:05)
[2021-12-22] MEDS ORDERED: LIDOCAINE 2% INJ 20 MG/ML (2 ML VIAL) ONE (15:05)
--- NOTE | 2021-12-22 15:49 | P.PCN ---
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 Esophagogastroduodenoscopy with ablation of AVMs 4 using ERBE 2. Esophagogastroduodenoscopy with attempted clipping GE junction SURGEON: Rosa Isela Monroe MD ANESTHESIA: MAC. INDICATIONS: The patient is a 56-year-old female who presents with acute gastrointestinal bleeding. Benefits and risks of the procedure were described. Informed consent was obtained. DESCRIPTION: The patient was brought into the endoscopy suite and laid in the left lateral decubitus position. An Olympus gastroscope was passed along the posterior oropharynx down to the distal esophagus where the squamocolumnar junction was encountered at 38 cm from the incisors. The stomach was entered and no bile reflux was found. Oxidized blood was found within the stomach fracture. Additional findings are listed below. The first through third portion of the duodenum was examined and unremarkable. Retroflexion of the scope confirmed Hill grade 2 lower esophageal valve. The squamocolumnar junction demonstrated LA grade B erosive esophagitis. The stomach was desufflated. The patient tolerated the procedure well. FINDINGS: Squamocolumnar junction 38 cm from the incisors. Diaphragmatic hiatus at 39 cm. Hiatal hernia, 1 cm Hill grade 2 lower esophageal valve. Ablation of multiple AVMs 5: - Proximal to the angularis incisura, 2 mm - Gastric cardia, 2 mm - Mid gastric body, 3 mm - Distal gastric body, 2 mm LA grade B erosive esophagitis. Dilated gastric varices at distal to GE junction with active bleeding - due to location and angularity, unable to clip No active duodenitis. RECOMMENDATIONS: 1. Recommend transfer to tertiary care center for control of bleeding by gastroenterology for banding versus clipping gastric variceal bleeding
[2021-12-22] MEDS ORDERED: SODIUM CHLORIDE 0.9% 1,000 ML IV ONE ×2 (15:51→16:11)
--- NOTE | 2021-12-22 16:35 | P.PN ---
Progress Note - Text Progress Note Date: 12/22/21 Findings thoroughly described to the patient and her of gastric variceal as a cause of bleeding. All questions addressed. Images from procedure given to family. Additional AVMs x 4 also identified in the stomach and ablated. Due to lack of GI coverage and specialty with need for gastroenterology for gastric variceal banding versus clipping, transfer to tertiary care for gastroenterology coverage described to patient and family. In the interim, monitor hemoglobin. Transfuse as needed for symptomatic anemia.
[2021-12-22 18:07] LABS: Glucose,Whole Blood 85 mg/dL (75-99)
[2021-12-22 19:40] LABS: Anisocytosis Slight; Basophils % (A) 0 %; Eosinophils # (A) 0.1 k/uL (0-0.7); Eosinophils % (A) 2 %; HCT 22.2 % (34.0-46.0); Hypochromasia Marked; Lymphocytes # (A) 0.7 k/uL (1.0-4.8); Lymphocytes % (A) 24 %; MCH 25.4 pg (25.0-35.0); MCHC 30.5 g/dL (31.0-37.0); MCV 83.2 fL (80.0-100.0); Mean Platelet Volume 8.4; Monocytes # (A) 0.2 k/uL (0-1.0); Monocytes % (A) 5 %; Neutrophils # (A) 2.1 k/uL (1.3-7.7); Neutrophils % (A) 67 %; Platelet Count 124 k/uL (150-450); Poikilocytosis Moderate; RBC 2.67 m/uL (3.80-5.40); RDW 16.8 % (11.5-15.5); WBC 3.1 k/uL (3.8-10.6)
--- NOTE | 2021-12-22 19:44 | P.PN ---
Progress Note - Text Progress Note Date: 12/22/21 Patient reevaluated this evening as ATEAM was called for hypotension. Per discussion with nursing, systolic blood pressure in the 80s. Similarly, patient's blood pressure was in the 80s in the phase 1 recovery and in the emergency room. Patient reported feeling lightheaded. Patient reports an appetite. She denies any loss of consciousness. [facility]. Additional labs pending. She will likely need blood transfusions as needed for GI bleed.
[2021-12-22 19:48] LABS: HGB 6.8 gm/dL (11.4-16.0)
[2021-12-22 20:13] LABS: Glucose,Whole Blood 86 mg/dL (75-99)
[2021-12-22] MEDS: PANTOPRAZOLE 40 MG/10 ML VIAL IVP SCH (20:38)
[2021-12-22] MEDS ORDERED: MIDODRINE 5 MG TAB PO PRN (22:00)
[2021-12-23] MEDS: SODIUM CHLORIDE 0.9% 1,000 ML IV SCH ×2 (00:51→08:46)
[2021-12-23 01:12] LABS: Anisocytosis Slight; HCT 24.2 % (34.0-46.0); HGB 7.6 gm/dL (11.4-16.0); Hypochromasia Marked; MCH 26.6 pg (25.0-35.0); MCHC 31.3 g/dL (31.0-37.0); Mean Platelet Volume 8.5; Platelet Count 114 k/uL (150-450); Poikilocytosis Moderate; RBC 2.85 m/uL (3.80-5.40); RDW 17.6 % (11.5-15.5); WBC 3.2 k/uL (3.8-10.6)
[2021-12-23 06:20] LABS: Glucose,Whole Blood 88 mg/dL (75-99)
[2021-12-23] MEDS: INSULIN ASPART (NovoLOG) 100 UNIT/ML VIAL SQ SCH ×2 (06:35→12:46)
[2021-12-23 07:32] LABS: Anisocytosis Slight; Hypochromasia Marked; MCH 26.9 pg (25.0-35.0); MCHC 31.8 g/dL (31.0-37.0); MCV 84.6 fL (80.0-100.0); Mean Platelet Volume 9.9; Platelet Count 109 k/uL (150-450); Poikilocytosis Moderate; RBC 2.95 m/uL (3.80-5.40); RDW 17.4 % (11.5-15.5); WBC 2.9 k/uL (3.8-10.6)
[2021-12-23] MEDS ORDERED: IOPAMIDOL CONTRAST (ORAL USE) VIAL PO PRN (08:10)
--- NOTE | 2021-12-23 08:10 | P.PN ---
Subjective Progress Note Date: 12/23/21 CHIEF COMPLAINT: GI bleed HISTORY OF PRESENT ILLNESS: The patient is a 56-year-old female who presents acutely with acute blood loss anemia including GI bleed. Patient underwent upper endoscopy with features of arteriovenous malformations 4 including a bleeding gastric variceal at the GE junction on able to clip or band due to lack of instrument available at this institution. Hemoglobin had declined from 7.0- 6.8. Patient's hemoglobin this morning is up to 7.6. Her is at bedside. She reports left upper quadrant abdominal pain that had been present prior to admission. She is concerned about her lactulose as it has been withheld. ROS: No reports of nausea and vomiting. No bowel movements. No fevers or chills. No new chest pain. No productive sputum PHYSICAL EXAM: VITAL SIGNS: Reviewed CONSTITUTIONAL: Well developed and in no acute distress. EYES: Conjuctivae without sclera icterus. Extraocular movements grossly intact. HEAD, EARS, NOSE, THROAT: Moist buccal mucosa. Head is atraumatic, normocephalic. Hears conversational speech. No nasal drainage. RESPIRATORY: Non-labored respirations and equal bilateral excursions. CARDIOVASCULAR: Palpable 2+ radial pulses. ABDOMEN: Mild left upper quadrant tenderness. MUSCULOSKELETAL: No gross deformity of the lower extremities noted. No clubbing. No cyanosis. SKIN: Good skin turgor. Well perfused. NEUROLOGIC: Cranial nerves II through XII grossly intact. No focal or lateralizing signs. PSYCH: Appropriate affect. Alert and oriented to person, place and time. CLINICAL LABS: Reviewed. Hemoglobin increased from 5.5-8.0 after 3 units packed red blood cells. ASSESSMENT: 1. GI bleed from gastric versus old bleed at GE junction. 2. Multiple gastric AVMs 3. History of alcohol abuse PLAN: 1. Recommend transfer to tertiary care center for GI coverage and gastric banding versus clipping of gastric variceal. All questions were addressed with the patient and her at bedside. 2. Will obtain CT of the abdomen and pelvis due to patient's abdominal pain and recent GI bleed as well as gastric variceal for further investigation cirrhosis. Objective - Vital Signs Vital signs: Vital Signs Temp 98.0 F 12/23/21 04:00 Pulse 92 12/23/21 04:00 Resp 16 12/23/21 04:00 BP 99/59 12/23/21 04:00 Pulse Ox 98 12/23/21 04:00 FiO2 Intake & Output 12/22/21 12/23/21 12/23/21 18:59 06:59 18:59 Intake Total 695 910 Balance 695 910 Weight 65.317 kg Intake: IV 75 Oral 600 Blood Product 620 310 Rc As-1 Unit 310 [id number] Rc As-1 Unit 310 [id number] Rc Cpda-1 Unit 310 [id number] Other: # Voids 3 - Labs CBC & Chem 7: 12/23/21 07:15 12/21/21 22:07 Labs: Abnormal Lab Results - Last 24 Hours (Table) 12/21/21 12/22/21 12/22/21 Range/Units 21:45 07:43 14:05 WBC 3.2 L 3.2 L (3.8-10.6) k/uL RBC 2.34 L 2.81 L (3.80-5.40) m/uL Hgb 5.9 L* 7.0 L (11.4-16.0) gm/dL Hct 19.1 L* 23.5 L (34.0-46.0) % MCH 24.7 L (25.0-35.0) pg MCHC 29.7 L (31.0-37.0) g/dL RDW 17.0 H 16.5 H (11.5-15.5) % Plt Count 123 L 124 L (150-450) k/uL Lymphocytes # 0.8 L (1.0-4.8) k/uL Crossmatch See Detail 12/22/21 12/23/21 12/23/21 Range/Units 19:00 00:29 07:15 WBC 3.1 L 3.2 L 2.9 L (3.8-10.6) k/uL RBC 2.67 L 2.85 L 2.95 L (3.80-5.40) m/uL Hgb 6.8 L* 7.6 L 8.0 L (11.4-16.0) gm/dL Hct 22.2 L 24.2 L 25.0 L (34.0-46.0) % MCH (25.0-35.0) pg MCHC 30.5 L (31.0-37.0) g/dL RDW 16.8 H 17.6 H 17.4 H (11.5-15.5) % Plt Count 124 L 114 L 109 L (150-450) k/uL Lymphocytes # 0.7 L (1.0-4.8) k/uL Crossmatch
[2021-12-23] MEDS: PANTOPRAZOLE 40 MG/10 ML VIAL IVP SCH (08:54)
[2021-12-23] MEDS: ALPRAZolam 1 MG TAB PO SCH ×2 (08:56→15:31)
[2021-12-23] MEDS: MONTELUKAST 10 MG TAB PO SCH (08:56)
[2021-12-23] MEDS: CYCLOBENZAPRINE 5 MG TAB PO SCH (08:56)
[2021-12-23] MEDS: traMADol 50 MG TAB PO SCH ×2 (08:56→15:31)
[2021-12-23] MEDS: NORTRIPTYLINE 10 MG CAP PO SCH (08:57)
[2021-12-23] MEDS ORDERED: ONDANSETRON 4 MG/2 ML VIAL IVP PRN (09:04)
[2021-12-23 10:11] VITALS: BP 94/61; PULSE 94; RESP 18; TEMP 98.2
--- NOTE | 2021-12-23 10:14 | P.PN ---
Subjective Patient is seen for follow-up for acute kidney injury mostly prerenal. Patient was admitted with weakness and found to have a hemoglobin of 5.6 g/dL with GI bleed. Status post packed RBCs transfusion Status post EGD yesterday which showed AVMs but they could not be clipped and there are plans for possible transfer to tertiary care center. Serum creatinine was 1.3. On admission. Labs are pending from today Objective - Vital Signs Vital signs: Vital Signs Temp 98.0 F 12/23/21 04:00 Pulse 92 12/23/21 04:00 Resp 16 12/23/21 04:00 BP 99/59 12/23/21 04:00 Pulse Ox 98 12/23/21 04:00 FiO2 Intake & Output 12/22/21 12/23/21 12/23/21 18:59 06:59 18:59 Intake Total 695 910 Balance 695 910 Weight 65.317 kg Intake: IV 75 Oral 600 Blood Product 620 310 Rc As-1 Unit 310 [id number] Rc As-1 Unit 310 [id number] Rc Cpda-1 Unit 310 [id number] Other: # Voids 3 - Exam Awake, comfortable, not in any acute distress Alert oriented 3 Examination of the heart S1 and S2 Examination lungs bilateral breath sounds are heard Abdomen is soft nontender Examination lower extremities shows no significant edema [employer] exam grossly intact - Labs CBC & Chem 7: 12/23/21 07:15 12/21/21 22:07 Labs: Abnormal Lab Results - Last 24 Hours (Table) 12/21/21 12/22/21 12/22/21 Range/Units 21:45 14:05 19:00 WBC 3.2 L 3.1 L (3.8-10.6) k/uL RBC 2.81 L 2.67 L (3.80-5.40) m/uL Hgb 7.0 L 6.8 L* (11.4-16.0) gm/dL Hct 23.5 L 22.2 L (34.0-46.0) % MCH 24.7 L (25.0-35.0) pg MCHC 29.7 L 30.5 L (31.0-37.0) g/dL RDW 16.5 H 16.8 H (11.5-15.5) % Plt Count 124 L 124 L (150-450) k/uL Lymphocytes # 0.8 L 0.7 L (1.0-4.8) k/uL Crossmatch See Detail 12/23/21 12/23/21 Range/Units 00:29 07:15 WBC 3.2 L 2.9 L (3.8-10.6) k/uL RBC 2.85 L 2.95 L (3.80-5.40) m/uL Hgb 7.6 L 8.0 L (11.4-16.0) gm/dL Hct 24.2 L 25.0 L (34.0-46.0) % MCH (25.0-35.0) pg MCHC (31.0-37.0) g/dL RDW 17.6 H 17.4 H (11.5-15.5) % Plt Count 114 L 109 L (150-450) k/uL Lymphocytes # (1.0-4.8) k/uL Crossmatch Assessment and Plan Assessment: 1. Acute kidney injury mostly prerenal associated with severe anemia and h ypotension currently nonoliguric 2. Severe anemia associated with GI bleed, receiving packed RBCs transfusion and status post EGD with attempted clipping of AVM which was unsuccessful and therefore being transferred to tertiary care center 3. Hypotension secondary to severe anemia and hypovolemia 4. Chronic liver disease, EtOH liver related Plan: Continue IV fluids Check labs today
--- NOTE | 2021-12-23 11:14 | P.PN ---
Subjective Progress Note Date: 12/23/21 HISTORY OF PRESENT ILLNESS This is a 56-year-old female patient of Dr. Haskins with past medical history of diabetes mellitus type 2, COPD, generalized osteoarthritis, cirrhosis of the liver and varices who alcoholic, history of previous GI bleed, generalized anxie ty disorder. Patient had EGD done 09/[address] Brambila which revealed mild gastritis. No varices or other abnormalities of the esophagus and biopsies were negative. Patient's last ultrasound on 11/17/2021 revealed hepatocellular disease. No abnormal biliary dilatation. No focal ascites. Patient gives history of having black stools for the past 3 weeks but she wanted to go to [place] which was planned to visit her daughter who she has not seen in 5 years so she did not want to seek treatment. She returned to [place] but then went camping and states that she had carbon monoxide poisoning while she was camping but still did not seek treatment. She states she's had lightheadedness and dizziness with a syncopal episode which she thought was related to the carbon monoxide poisoning. She complains of some shortness of breath, no chest pain. She states that she has had black stools in the past of an intermittent lasting maybe 4 days at a time and resolves on its own. She also states that she perked up some blood the other day. Patient states she has abdominal pain all the time. She talked to Dr. Snowden and he ordered blood work found that her hemoglobin was 5.3 and she was sent into the hospital for further evaluation. Patient presented to [facility] emergency center and found to be afebrile, heart rate 106, blood pressure 101/62, pulse ox 95% on room air. EKG sinus rhythm with no acute ST changes. Sodium 135, potassium 3.4, chloride 100, CO2 29, BUN 24 and creatinine 1.3. Lactic acid 1.3. AST 40 otherwise liver function tests were normal. Hemoglobin 5.5, WBC 5.2, platelet count 171. Patient was transfused 1 unit of packed RBCs and repeat blood work reveals hemoglobin of 5.9 and thus a second unit of packed RBCs ordered. Dr. Snowden and Dr. Monroe are on consult. Patient is scheduled for EGD. 12/23: Patient has been afebrile, heart rate 94, blood pressure 94/61, pulse ox 97% on room air. Hemoglobin this morning is 8.0. Platelet count 109, WBC 2.9. Patient is status post transfusion of a total of 3 units of packed RBCs. Yesterday, patient underwent EGD with Dr. Monroe finding multiple gastric AVMs 5, gastric varices at GE junction with active bleeding, ablation of multiple AVMs 5 and recommended transfer to tertiary care center. Dr. Regalado gave report to [facility] last evening and we're currently waiting for a bed to open at [facility]. Patient is currently stable. She'll be transferred once arrangements are completed. CAT scan of the abdomen and pelvis with contrast ordered today by general surgery. REVIEW OF SYSTEMS Constitutional: No fever, no chills, no night sweats. No weight change. Reports weakness, Reports fatigue no lethargy. No daytime sleepiness. EENT: No headache. No blurred vision or double vision, no loss of vision. No loss of Hearing, no ringing in the ears, no dizziness. No nasal drainage or congestion. No epistaxis. No sore throat. Lungs: Reports shortness of breath, cough, no sputum production. No wheezing. Reports shortness of breath with exertion Cardiovascular: No chest pain, no lower extremity edema. No palpitations. No paroxysmal nocturnal dyspnea. No orthopnea. No lightheadedness or dizziness. No syncopal episodes. Abdominal: No abdominal pain. No nausea, vomiting. No diarrhea. No consti pation. Reports tarry stools. No loss of appetite. Genitourinary: No dysuria, increased frequency, urgency. No urinary retention. Musculoskeletal: No myalgias. No muscle weakness, no gait dysfunction, no frequent falls. No back pain. No neck pain. Integumentary: No wounds, no lesions. No rash or pruritus. No unusual bruising. No change in hair or nails. Neurologic: No aphasia. No facial droop. No change in mentation. No head injury. No headache. No paralysis. No paresthesia. Psychiatric: No depression. No anxiety. No mood swings. Endocrine: No abnormal blood sugars. No weight change. No excessive sweating or thirst. PHYSICAL EXAMINATION Gen: This is this is a thin 56-year-old female. Patient is resting in bed and appears to be comfortable and in no acute distress. is at bedside. HEENT: Head is atraumatic, normocephalic. Pupils equal, round. Sclerae is anicteric. NECK: Supple. No JVD. No lymphadenopathy. No thyromegaly. LUNGS: Clear to auscultation. No wheezes or rhonchi. No intercostal retractions. HEART: Regular rate and rhythm. Systolic murmur. ABDOMEN: Soft. Bowel sounds are present. No masses. No tenderness. EXTREMITIES: No pedal edema. No calf tenderness. Dorsalis pedis +2 bilaterally. NEUROLOGICAL: Patient is awake, alert and oriented x3. Cranial nerves 2 through 12 are grossly intact. ASSESSMENT AND PLAN 1. Acute GI bleed due to AVMs and gastric varices. General surgery consult appreciated, status post EGD.. 2. Acute blood loss anemia. Status post transfusion of total of 3 units packed RBCs. Continue to monitor CBC closely and transfuse as indicated. 3. Diabetes mellitus type 2, diet controlled. Patient on NovoLog scale before meals and at bedtime. 4. Hypotension most likely secondary to acute GI bleed. Continue IV fluids 0.9 normal saline decreased to 50 mL per hour. 5. Alcoholic liver cirrhosis. Aldactone 25 mg twice daily, Demadex 20 mg daily, lactulose 20 g 3 times daily on hold due to hypotension and GI bleed. 6. Gastroesophageal reflux disease. Continue Protonix 40 mg IV. 7. COPD. Continue albuterol inhaler as needed and Singulair 10 mg at bedtime. 8. Recurrent depression and generalized anxiety disorder. Continue Xanax 1 mg 3 times daily, Pamelor 10 mg daily. 9. Chronic back pain. Continue Flexeril 5 mg twice daily, tramadol 50 mg 3 times daily. 10. Chronic kidney disease stage III. Consult with nephrology. 11. DVT prophylaxis. SCDs and CANDIDO hose. CODE STATUS: Full code Impression and plan of care have been directed as dictated by the signing physician. Demi Vasquez nurse practitioner acting as scribe for signing physician. Objective - Vital Signs Vital signs: Vital Signs Temp 98.0 F 12/23/21 04:00 Pulse 92 12/23/21 04:00 Resp 16 12/23/21 04:00 BP 99/59 12/23/21 04:00 Pulse Ox 98 12/23/21 04:00 FiO2 Intake & Output 12/22/21 12/23/21 12/23/21 18:59 06:59 18:59 Intake Total 695 910 Balance 695 910 Weight 65.317 kg Intake: IV 75 Oral 600 Blood Product 620 310 Rc As-1 Unit 310 [id number] Rc As-1 Unit 310 [id number] Rc Cpda-1 Unit 310 [id number] Other: # Voids 3 - Labs CBC & Chem 7: 12/23/21 07:15 12/21/21 22:07 Labs: Abnormal Lab Results - Last 24 Hours (Table) 12/21/21 12/22/21 12/22/21 Range/Units 21:45 14:05 19:00 WBC 3.2 L 3.1 L (3.8-10.6) k/uL RBC 2.81 L 2.67 L (3.80-5.40) m/uL Hgb 7.0 L 6.8 L* (11.4-16.0) gm/dL Hct 23.5 L 22.2 L (34.0-46.0) % MCH 24.7 L (25.0-35.0) pg MCHC 29.7 L 30.5 L (31.0-37.0) g/dL RDW 16.5 H 16.8 H (11.5-15.5) % Plt Count 124 L 124 L (150-450) k/uL Lymphocytes # 0.8 L 0.7 L (1.0-4.8) k/uL Crossmatch See Detail 12/23/21 12/23/21 Range/Units 00:29 07:15 WBC 3.2 L 2.9 L (3.8-10.6) k/uL RBC 2.85 L 2.95 L (3.80-5.40) m/uL Hgb 7.6 L 8.0 L (11.4-16.0) gm/dL Hct 24.2 L 25.0 L (34.0-46.0) % MCH (25.0-35.0) pg MCHC (31.0-37.0) g/dL RDW 17.6 H 17.4 H (11.5-15.5) % Plt Count 114 L 109 L (150-450) k/uL Lymphocytes # (1.0-4.8) k/uL Crossmatch
[2021-12-23] MEDS ORDERED: SODIUM CHLORIDE 0.9% 1,000 ML IV SCH (11:15)
--- NOTE | 2021-12-23 11:18 | P.TRANS ---
Providers Date of admission: 12/22/21 01:19 Expected date of discharge: 12/23/21 Attending physician: Bill Regalado Consults: 12/22/21 01:21 Consult Physician Routine Consulting Provider: Rosa Isela Monroe Consult Reason/Comments: GI bleeding Do you want consulting provider notified?: Already Contacted 12/22/21 01:22 Consult Physician Routine Consulting Provider: Herminio Snowden Consult Reason/Comments: your patient Do you want consulting provider notified?: Yes 12/22/21 10:49 Consult Physician Routine Consulting Provider: Aguila Gregory Consult Reason/Comments: icu management, active GIB, 70-80 syst, hgb 5.9 Do you want consulting provider notified?: Yes Primary care physician: Dajuan Haskins [facility] Course: HISTORY OF PRESENT ILLNESS This is a 56-year-old female patient of Dr. Haskins with past medical history of diabetes mellitus type 2, COPD, generalized osteoarthritis, cirrhosis of the liver and varices who alcoholic, history of previous GI bleed, generalized anxiety disorder. Patient had EGD done 09/[address] Brambila which revealed mild gastritis. No varices or other abnormalities of the esophagus and biopsies were negative. Patient's last ultrasound on 11/17/2021 revealed hepatocellular disease. No abnormal biliary dilatation. No focal ascites. Patient gives history of having black stools for the past 3 weeks but she wanted to go to [place] which was planned to visit her daughter who she has not seen in 5 years so she did not want to seek treatment. She returned to [place] but then went camping and states that she had carbon monoxide poisoning while she was camping but still did not seek treatment. She states she's had lightheadedness and dizziness with a syncopal episode which she thought was related to the carbon monoxide poisoning. She complains of some shortness of breath, no chest pain. She states that she has had black stools in the past of an intermittent lasting maybe 4 days at a time and resolves on its own. She also states that she perked up some blood the other day. Patient states she has abdominal pain all the time. She talked to Dr. Snowden and he ordered blood work found that her hemoglobin was 5.3 and she was sent into the hospital for further evaluation. Patient presented to [facility] emergency center and found to be afebrile, heart rate 106, blood pressure 101/62, pulse ox 95% on room air. EKG sinus rhythm with no acute ST changes. Sodium 135, potassium 3.4, chloride 100, CO2 29, BUN 24 and creatinine 1.3. Lactic acid 1.3. AST 40 otherwise liver function tests were normal. Hemoglobin 5.5, WBC 5.2, platelet count 171. Patient was transfused 1 unit of packed RBCs and repeat blood work reveals hemoglobin of 5.9 and thus a second unit of packed RBCs ordered. Dr. Snowden and Dr. Monroe are on consult. Patient is scheduled for EGD. 12/23: Patient has been afebrile, heart rate 94, blood pressure 94/61, pulse ox 97% on room air. Hemoglobin this morning is 8.0. Platelet count 109, WBC 2.9. Patient is status post transfusion of a total of 3 units of packed RBCs. Yesterday, patient underwent EGD with Dr. Monroe finding multiple gastric AVMs 5, gastric varices at GE junction with active bleeding, ablation of multiple AVMs 5 and recommended transfer to tertiary care center. Dr. Regalado gave report to [facility] last evening and we're currently waiting for a bed to open at [facility]. Patient is currently stable. She'll be transferred once arrangements are completed. CAT scan of the abdomen and pelvis with contrast ordered today by general surgery. REVIEW OF SYSTEMS Constitutional: No fever, no chills, no night sweats. No weight change. Reports weakness, Reports fatigue no lethargy. No daytime sleepiness. EENT: No headache. No blurred vision or double vision, no loss of vision. No loss of Hearing, no ringing in the ears, no dizziness. No nasal drainage or congestion. No epistaxis. No sore throat. Lungs: Reports shortness of breath, cough, no sputum production. No wheezing. Reports shortness of breath with exertion Cardiovascular: No chest pain, no lower extremity edema. No palpitations. No paroxysmal nocturnal dyspnea. No orthopnea. No lightheadedness or dizziness. No syncopal episodes. Abdominal: No abdominal pain. No nausea, vomiting. No diarrhea. No constipation. Reports tarry stools. No loss of appetite. Genitourinary: No dysuria, increased frequency, urgency. No urinary retention. Musculoskeletal: No myalgias. No muscle weakness, no gait dysfunction, no frequent falls. No back pain. No neck pain. Integumentary: No wounds, no lesions. No rash or pruritus. No unusual bruising. No change in hair or nails. Neurologic: No aphasia. No facial droop. No change in mentation. No head injury. No headache. No paralysis. No paresthesia. Psychiatric: No depression. No anxiety. No mood swings. Endocrine: No abnormal blood sugars. No weight change. No excessive sweating or thirst. PHYSICAL EXAMINATION Gen: This is this is a thin 56-year-old female. Patient is resting in bed and appears to be comfortable and in no acute distress. is at bedside. HEENT: Head is atraumatic, normocephalic. Pupils equal, round. Sclerae is anicteric. NECK: Supple. No JVD. No lymphadenopathy. No thyromegaly. LUNGS: Clear to auscultation. No wheezes or rhonchi. No intercostal retractions. HEART: Regular rate and rhythm. Systolic murmur. ABDOMEN: Soft. Bowel sounds are present. No masses. No tenderness. EXTREMITIES: No pedal edema. No calf tenderness. Dorsalis pedis +2 bilaterally. NEUROLOGICAL: Patient is awake, alert and oriented x3. Cranial nerves 2 through 12 are grossly intact. ASSESSMENT AND PLAN 1. Acute GI bleed due to AVMs and gastric varices. General surgery consult appreciated, status post EGD.. 2. Acute blood loss anemia. Status post transfusion of total of 3 units packed RBCs. Continue to monitor CBC closely and transfuse as indicated. 3. Diabetes mellitus type 2, diet controlled. Patient on NovoLog scale before meals and at bedtime. 4. Hypotension most likely secondary to acute GI bleed. Continue IV fluids 0.9 normal saline decreased to 50 mL per hour. 5. Alcoholic liver cirrhosis. Aldactone 25 mg twice daily, Demadex 20 mg daily, lactulose 20 g 3 times daily on hold due to hypotension and GI bleed. 6. Gastroesophageal reflux disease. Continue Protonix 40 mg IV. 7. COPD. Continue albuterol inhaler as needed and Singulair 10 mg at bedtime. 8. Recurrent depression and generalized anxiety disorder. Continue Xanax 1 mg 3 times daily, Pamelor 10 mg daily. 9. Chronic back pain. Continue Flexeril 5 mg twice daily, tramadol 50 mg 3 times daily. 10. Chronic kidney disease stage III. Consult with nephrology. 11. DVT prophylaxis. SCDs and CANDIDO shaikh. CODE STATUS: Full code Impression and plan of care have been directed as dictated by the signing physician. Demi Vasquez nurse practitioner acting as scribe for signing physician. Patient Condition at Discharge: Stable Plan - Transfer Summary Transfer Medications: Active Medications Generic Name Dose Route Start Last Admin Trade Name Freq PRN Reason Stop Dose Admin Albuterol Sulfate 2.5 mg 12/22/21 01:24 Albuterol Nebulized 2.5 Mg/3 Ml INHALATION RT-Q4H PRN Shortness Of Breath Alprazolam 1 mg 12/22/21 09:00 12/23/21 08:56 Alprazolam 1 Mg Tab PO 1 mg TID CARI Administration Cyclobenzaprine HCl 5 mg 12/22/21 09:00 12/23/21 08:56 Cyclobenzaprine 5 Mg Tab PO 5 mg BID CARI Administration Sodium Chloride 1,000 mls @ 130 mls/hr 12/22/21 01:30 12/23/21 08:46 Saline 0.9% IV Not Given .[id number] CARI Insulin Aspart 0 unit 12/22/21 12:30 12/23/21 06:35 Insulin Aspart (Novolog) 100 Unit/Ml Vial SQ Not Given ACHS [facility] Protocol Iopamidol 30 ml 12/23/21 08:10 12/23/21 08:53 Iopamidol Contrast (Oral Use) Vial PO 12/24/21 08:11 30 ml Q60M PRN Administration CT Scan Midodrine 5 mg 12/22/21 22:00 Midodrine 5 Mg Tab PO AC-TID PRN Hypotension Montelukast Sodium 10 mg 12/22/21 09:00 12/23/21 08:56 Montelukast 10 Mg Tab PO 10 mg DAILY CARI Administration Naloxone HCl 0.2 mg 12/22/21 01:18 Naloxone 0.4 Mg/Ml 1 Ml Vial IV Q2M PRN Opioid Reversal Nortriptyline HCl 10 mg 12/22/21 09:00 12/23/21 08:57 Nortriptyline 10 Mg Cap PO 10 mg DAILY CARI Administration Ondansetron HCl 4 mg 12/23/21 09:04 Ondansetron 4 Mg/2 Ml Vial IVP Q6HR PRN Nausea And Vomiting Pantoprazole Sodium 40 mg 12/22/21 21:00 12/23/21 08:54 Pantoprazole 40 Mg/10 Ml Vial IVP 40 mg BID CARI Administration Tramadol HCl 50 mg 12/22/21 09:00 12/23/21 08:56 Tramadol 50 Mg Tab PO 50 mg TID CARI Administration Follow up Appointment(s)/Referral(s): Rosa Isela Monroe MD [STAFF PHYSICIAN] - 1 Week Dajuan Haskins MD [Primary Care Provider] - 1 Week Discharge Disposition: HOME SELF-CARE - Out of Hospital Transfer - Req. Specs Out of Hospital Transfer - Requested Specifics: Medical ICU
[2021-12-23 11:45] LABS: Calcium 7.6 mg/dL (8.4-10.2)
--- NOTE | 2021-12-23 11:53 | CT ---
EXAMINATION TYPE: CT abdomen pelvis w con DATE OF EXAM: 12/23/2021 COMPARISON: CT 08/07/2016 HISTORY: Left sided abdominal pain. CT DLP: 829.1 mGycm Automated exposure control for dose reduction was used. TECHNIQUE: Helical acquisition of images from the lung bases through the pelvis have been completed. CONTRAST: Performed with Oral Contrast and with IV Contrast, patient injected with 50ml mL of Isovue 300. FINDINGS: Within the stomach there is a intermediate attenuation abnormality, contrast courses periph erally about the abnormal luminal density. Large varices present at the gastroesophageal junction lev el. There are areas of air mixed with the abnormal density within the stomach and also along nondepen dent aspect of the stomach medially. There is some thickening of the distal esophagus. LUNG BASES: There is basilar atelectasis with some associated effusion. AORTA: No significant abnormality is appreciated. LIVER/GB: There is a nodular contour, some heterogeneity and density may be related to underlying hep atocellular disease but is indeterminate. PANCREAS: No significant abnormality is seen. SPLEEN: Enlarged. ADRENALS: No significant abnormality is seen. KIDNEYS: No significant abnormality is seen. REPRODUCTIVE ORGANS: Not seen BOWEL: Colonic interposition noted anterior to the liver. Concentric focus of narrowing is present w ithin the right colon, coronal image #37, axial image #46, lesion extends towards the level of the ce cum, colon appears redundant this level indeterminate. FREE AIR: No Free Air visible. ASCITES: There is a small amount of free fluid within the pelvis PELVIC ADENOPATHY: None visualized. RETROPERITONEAL ADENOPATHY: No Retroperitoneal Adenopathy visible. URINARY BLADDER: No significant abnormality is seen. OSSEOUS STRUCTURES: Degenerative disc changes and facet arthropathy noted in the visualized spine. IMPRESSION: FINDINGS CONSISTENT WITH CIRRHOSIS AND PORTAL HYPERTENSION, CONSIDER ENDOSCOPY, POSSIBLE LARGE HEMATO MA WITHIN THE STOMACH, RESULT RELATED TO THE REFERRING CLINICIAN AT THE TIME OF DICTATION. Difficult to exclude an apple core lesion in the right colon.
[2021-12-23 11:56] LABS: Glucose,Whole Blood 95 mg/dL (75-99)
== END 2021-12-23 16:00 | disposition short-term general hospital (02) | DRG 299 ==
LOC: EC 20:17 → 5NMEDONC 12-22 01:19 → 4SSUR 12-22 15:33 → 3SCARD 12-22 18:35
PROVIDERS: ADMIT Internal Medicine Geriatric Medicine; ATTEND Internal Medicine Geriatric Medicine
PROC: 30233N1 Transfusion of Nonautologous Red Blood Cells into Peripheral Vein, Percutaneous Approach (ICD-10-PCS; 2021-12-22)
PROC: 0W3P8ZZ Control Bleeding in Gastrointestinal Tract, Via Natural or Artificial Opening Endoscopic (ICD-10-PCS; principal; 2021-12-22 08:30)
PROC: 0D578ZZ Destruction of Stomach, Pylorus, Via Natural or Artificial Opening Endoscopic (ICD-10-PCS; 2021-12-22 08:30)
DX: I86.4 Gastric varices (principal); K31.811 Angiodysplasia of stomach and duodenum with bleeding; N17.9 Acute kidney failure, unspecified; D62 Acute posthemorrhagic anemia; F33.9 Major depressive disorder, recurrent, unspecified; K22.11 Ulcer of esophagus with bleeding; Q27.33 Arteriovenous malformation of digestive system vessel; I25.10 Atherosclerotic heart disease of native coronary artery without angina pectoris; F41.1 Generalized anxiety disorder; G89.29 Other chronic pain; Z20.822 Contact with and (suspected) exposure to COVID-19; T58.91XA Toxic effect of carbon monoxide from unspecified source, accidental (unintentional), initial encounter; K22.89 Other specified disease of esophagus; N18.30 Chronic kidney disease, stage 3 unspecified; I12.9 Hypertensive chronic kidney disease with stage 1 through stage 4 chronic kidney disease, or unspecified chronic kidney disease; I34.1 Nonrheumatic mitral (valve) prolapse; I95.9 Hypotension, unspecified; K21.00 Gastro-esophageal reflux disease with esophagitis, without bleeding; K70.30 Alcoholic cirrhosis of liver without ascites; J44.9 Chronic obstructive pulmonary disease, unspecified; E11.22 Type 2 diabetes mellitus with diabetic chronic kidney disease; E78.5 Hyperlipidemia, unspecified; E86.1 Hypovolemia; E87.6 Hypokalemia; K59.00 Constipation, unspecified; F17.210 Nicotine dependence, cigarettes, uncomplicated; K29.70 Gastritis, unspecified, without bleeding; K22.4 Dyskinesia of esophagus; K44.9 Diaphragmatic hernia without obstruction or gangrene; M15.9 Polyosteoarthritis, unspecified; M41.9 Scoliosis, unspecified; Z79.899 Other long term (current) drug therapy; Z82.49 Family history of ischemic heart disease and other diseases of the circulatory system; Z87.11 Personal history of peptic ulcer disease; Z90.710 Acquired absence of both cervix and uterus; Z96.652 Presence of left artificial knee joint; Z86.59 Personal history of other mental and behavioral disorders
CPT/HCPCS: 36415; 43255; 43270; 74177; 80048; 80053; 83036; 83605; 84484; 85025; 85027; 85610; 85730; 86850; 86900; 86901; 86920; 87635; 93005; 96361; 96374; 96376; 99285

== ENCOUNTER → 2021-12-21 | Outpatient (CLI) | payer BC ==
[2021-12-21 14:57] LABS: Appearance,Urine Clear (Clear); Bilirubin,Urine Negative (Negative); Blood,Urine Negative (Negative); Color,Urine Yellow; Glucose,Urine (UA) Negative (Negative); Ketones,Urine Negative (Negative); Leukocyte Esterase,Urine Moderate (Negative); Nitrite,Urine Negative (Negative); PH, Urine 5.5 (5.0-8.0); Protein,Urine Negative (Negative); RBC,Urine 1 /hpf (0-5); Specific Gravity,Urine 1.015 (1.001-1.035); Squamous Epithelial Cell,Urine <1 /hpf (0-4); Urobilinogen,Urine <2.0 mg/dL (<2.0); WBC,Urine 5 /hpf (0-5)
[2021-12-21 18:46] LABS: Ferritin 26.3 ng/mL (10.0-291.0)
[2021-12-21 18:59] LABS: Basophils # (A) 0.03 X 10*3/uL (0.00-0.10); Basophils % (A) 0.6 %; Eosinophils # (A) 0.08 X 10*3/uL (0.04-0.35); Eosinophils % (A) 1.5 %; HCT 18.4 % (37.2-46.3); HGB 5.3 g/dL (12.0-15.0); Immature Grans, Automated 0.7 %; Lymphocytes # (A) 1.15 X 10*3/uL (0.90-5.00); Lymphocytes % (A) 21.5 %; MCH 24.3 pg (27.0-32.0); MCHC 28.8 g/dL (32.0-37.0); MCV 84.4 fL (80.0-97.0); Mean Platelet Volume 10.9 fL (9.5-12.2); Monocytes # (A) 0.34 X 10*3/uL (0.20-1.00); Monocytes % (A) 6.4 %; NRBC Per 100 WBC 0 /100 WBCS (0.0-0.0); Neutrophils % (A) 69.3 %; Platelet Count 167 X 10*3/uL (140-440); RBC 2.18 X 10*6/uL (4.10-5.20); RDW 14.8 % (11.5-14.5); WBC 5.34 X 10*3/uL (4.50-10.00)
[2021-12-21 19:01] LABS: % Iron Saturation 6.95 (12.00-45.00); Magnesium 1.9 mg/dL (1.5-2.4); Phosphorus 3.5 mg/dL (2.4-5.1)
[2021-12-21 19:02] LABS: African American GFR (CKD) 58.7 (60.0-200.0); Albumin 3.8 g/dL (3.8-4.9); Albumin/Globulin Ratio 1.39 (1.60-3.17); Anion Gap 12.4 mmol/L (10.00-18.00); BUN/Creat Ratio 18.07 Ratio (12.00-20.00); Blood Urea Nitrogen 21.5 mg/dL (9.0-27.0); Calcium 8.9 mg/dL (8.7-10.3); Carbon Dioxide 23.5 mmol/L (20.0-27.5); Globulin 2.7 g/dL (1.6-3.3); Non-African American GFR(CKD) 50.6 (60.0-200.0); Potassium 3.3 mmol/L (3.5-5.5); Total Bilirubin 0.5 mg/dL (0.30-1.20); Total Protein 6.5 g/dL (6.2-8.2); Uric Acid 5.4 mg/dL (2.9-7.7)
== END | disposition home or self-care (01) ==
LOC: LABWHC1 13:38
PROVIDERS: ATTEND Internal Medicine
DX: N18.31 Chronic kidney disease, stage 3a (principal); D64.9 Anemia, unspecified; N39.0 Urinary tract infection, site not specified; N25.81 Secondary hyperparathyroidism of renal origin; E55.9 Vitamin D deficiency, unspecified; M10.9 Gout, unspecified
CPT/HCPCS: 36415; 80053; 81001; 82306; 82728; 83540; 83550; 83735; 83970; 84100; 84550; 85025

== ENCOUNTER → 2022-01-27 | Outpatient (CLI) | payer BC ==
[2022-01-27 17:45] LABS: HCT 36.8 % (37.2-46.3); HGB 11.1 g/dL (12.0-15.0); MCH 26.5 pg (27.0-32.0); MCHC 30.2 g/dL (32.0-37.0); MCV 87.8 fL (80.0-97.0); Mean Platelet Volume 11.7 fL (9.5-12.2); NRBC Per 100 WBC 0 /100 WBCS (0.0-0.0); Platelet Count 111 X 10*3/uL (140-440); RBC 4.19 X 10*6/uL (4.10-5.20); RDW 13.5 % (11.5-14.5); WBC 3.38 X 10*3/uL (4.50-10.00)
[2022-01-27 18:04] LABS: % Iron Saturation 10.21 (12.00-45.00); African American GFR (CKD) 62.5 (60.0-200.0); Albumin 4.3 g/dL (3.8-4.9); Albumin/Globulin Ratio 1.57 (1.60-3.17); BUN/Creat Ratio 8.46 Ratio (12.00-20.00); Blood Urea Nitrogen 9.6 mg/dL (9.0-27.0); Calcium 9.5 mg/dL (8.7-10.3); Carbon Dioxide 26.9 mmol/L (20.0-27.5); Globulin 2.7 g/dL (1.6-3.3); Magnesium 1.9 mg/dL (1.5-2.4); Non-African American GFR(CKD) 53.9 (60.0-200.0); Phosphorus 3.6 mg/dL (2.4-5.1); Potassium 3.9 mmol/L (3.5-5.5); Total Bilirubin 0.5 mg/dL (0.30-1.20); Uric Acid 5.4 mg/dL (2.9-7.7)
[2022-01-27 18:24] LABS: Ferritin 47.7 ng/mL (10.0-291.0)
[2022-01-27 18:57] LABS: Appearance,Urine Turbid (Clear); Bacteria,Urine None Seen /HPF (None Seen); Bilirubin,Urine Small (Negative); Blood,Urine Negative (Negative); Calcium Oxalate Crystals,Urine Present /LPF (None Seen); Color,Urine Dark Yellow (Yellow); Ketones,Urine 15 mg/dL (Negative); Nitrite,Urine Negative (Negative); Specific Gravity,Urine 1.027 (1.001-1.030)
== END | disposition home or self-care (01) ==
LOC: LABWHC1 11:15
PROVIDERS: ATTEND Internal Medicine
DX: N18.31 Chronic kidney disease, stage 3a (principal); F17.210 Nicotine dependence, cigarettes, uncomplicated
CPT/HCPCS: 36415; 80053; 81001; 82306; 82728; 83540; 83550; 83735; 83970; 84100; 84550; 85027

== ENCOUNTER → 2022-03-07 | Outpatient (CLI) | payer BC ==
[2022-03-07 18:18] LABS: Hepatitis B Surface AB- Quant 3.5 mIU/mL; Hepatitis B Surface Antibody Nonreactive (Nonreactive)
[2022-03-07 18:22] LABS: African American GFR (CKD) 58.1 (60.0-200.0); Anion Gap 11.3 mmol/L (10.00-18.00); BUN/Creat Ratio 9.08 Ratio (12.00-20.00); Blood Urea Nitrogen 10.9 mg/dL (9.0-27.0); Calcium 9.7 mg/dL (8.7-10.3); Carbon Dioxide 26.7 mmol/L (20.0-27.5); Non-African American GFR(CKD) 50.1 (60.0-200.0); Potassium 4.6 mmol/L (3.5-5.5)
[2022-03-07 18:51] LABS: Hepatitis A Ab, Total Nonreactive (Nonreactive)
== END | disposition home or self-care (01) ==
LOC: LABWHC1 11:56
PROVIDERS: ATTEND Internal Medicine Gastroenterology
DX: K72.90 Hepatic failure, unspecified without coma (principal); K74.60 Unspecified cirrhosis of liver
CPT/HCPCS: 36415; 80048; 86704; 86706; 86708

== ENCOUNTER → 2022-05-17 | Outpatient (CLI) | payer BC ==
[2022-05-17 19:29] LABS: % Iron Saturation 35.88 (12.00-45.00); African American GFR (CKD) 65.3 (60.0-200.0); Albumin 4.6 g/dL (3.8-4.9); Albumin/Globulin Ratio 1.47 (1.60-3.17); Anion Gap 13.7 mmol/L (10.00-18.00); BUN/Creat Ratio 12.66 Ratio (12.00-20.00); Blood Urea Nitrogen 13.8 mg/dL (9.0-27.0); Calcium 9.6 mg/dL (8.7-10.3); Carbon Dioxide 26.7 mmol/L (20.0-27.5); Globulin 3.1 g/dL (1.6-3.3); Magnesium 1.9 mg/dL (1.5-2.4); Non-African American GFR(CKD) 56.3 (60.0-200.0); Phosphorus 3.4 mg/dL (2.4-5.1); Potassium 4.6 mmol/L (3.5-5.5); Total Bilirubin 0.6 mg/dL (0.30-1.20); Total Protein 7.6 g/dL (6.2-8.2); Uric Acid 4.1 mg/dL (2.9-7.7)
[2022-05-17 20:10] LABS: Basophils # (A) 0.02 X 10*3/uL (0.00-0.10); Basophils % (A) 0.5 %; Eosinophils # (A) 0.07 X 10*3/uL (0.04-0.35); Eosinophils % (A) 1.6 %; HCT 40.9 % (37.2-46.3); HGB 14.2 g/dL (12.0-15.0); Immature Grans, Automated 0.5 %; Lymphocytes # (A) 0.85 X 10*3/uL (0.90-5.00); Lymphocytes % (A) 19.8 %; MCH 32.1 pg (27.0-32.0); MCHC 34.7 g/dL (32.0-37.0); MCV 92.3 fL (80.0-97.0); Mean Platelet Volume 10.7 fL (9.5-12.2); Monocytes # (A) 0.35 X 10*3/uL (0.20-1.00); Monocytes % (A) 8.1 %; NRBC Per 100 WBC 0 /100 WBCS (0.0-0.0); Neutrophils # (A) 2.99 X 10*3/uL (1.80-7.70); Neutrophils % (A) 69.5 %; Platelet Count 87 X 10*3/uL (140-440); RBC 4.43 X 10*6/uL (4.10-5.20); RDW 14.1 % (11.5-14.5)
[2022-05-17 22:44] LABS: Appearance,Urine Clear (Clear); Bilirubin,Urine Negative (Negative); Blood,Urine Negative (Negative); Color,Urine Yellow (Yellow); Ketones,Urine Negative (Negative); Nitrite,Urine Negative (Negative); PH, Urine 7.5 (5.0-8.0); Specific Gravity,Urine 1.012 (1.001-1.030)
[2022-05-17 22:46] LABS: Bacteria,Urine None Seen /HPF (None Seen)
[2022-05-18 00:18] LABS: Microalbumin Creatinine Ratio <30 mg/g Creat (0-30)
== END | disposition home or self-care (01) ==
LOC: LABWHC1 14:25
PROVIDERS: ATTEND Nurse Practitioner Family
DX: E55.9 Vitamin D deficiency, unspecified (principal); N39.0 Urinary tract infection, site not specified; N25.81 Secondary hyperparathyroidism of renal origin; M10.9 Gout, unspecified; N18.31 Chronic kidney disease, stage 3a; D63.1 Anemia in chronic kidney disease
CPT/HCPCS: 36415; 80053; 81001; 82043; 82306; 82570; 82728; 83540; 83550; 83735; 83970; 84100; 84550; 85025

== ENCOUNTER → 2022-12-22 | Outpatient (CLI) | payer BC ==
[2022-12-22 16:23] LABS: HCT 40.9 % (37.2-46.3); HGB 13.7 g/dL (12.0-15.0); MCH 31.9 pg (27.0-32.0); MCHC 33.5 g/dL (32.0-37.0); MCV 95.3 fL (80.0-97.0); Mean Platelet Volume 10.3 fL (9.5-12.2); NRBC Per 100 WBC 0 /100 WBCS (0.0-0.0); Platelet Count 91 X 10*3/uL (140-440); RBC 4.29 X 10*6/uL (4.10-5.20); RDW 13.2 % (11.5-14.5); WBC 4.09 X 10*3/uL (4.50-10.00)
[2022-12-22 16:46] LABS: % Iron Saturation 25.08 (12.00-45.00); Albumin 4.5 g/dL (3.8-4.9); Albumin/Globulin Ratio 1.62 (1.60-3.17); Anion Gap 13.6 mmol/L (10.00-18.00); BUN/Creat Ratio 13.47 Ratio (12.00-20.00); Blood Urea Nitrogen 12.2 mg/dL (9.0-27.0); Calcium 9.8 mg/dL (8.7-10.3); Globulin 2.8 g/dL (1.6-3.3); Magnesium 1.9 mg/dL (1.5-2.4); Non-African American GFR(CKD) 69.9 (60.0-200.0); Phosphorus 3.2 mg/dL (2.4-5.1); Potassium 4.3 mmol/L (3.5-5.5); Total Bilirubin 0.6 mg/dL (0.30-1.20); Total Protein 7.3 g/dL (6.2-8.2); Uric Acid 4.6 mg/dL (2.9-7.7)
[2022-12-22 17:44] LABS: Appearance,Urine Clear (Clear); Bilirubin,Urine Negative (Negative); Blood,Urine Negative (Negative); Color,Urine Yellow (Yellow); Ketones,Urine Negative (Negative); Nitrite,Urine Negative (Negative); Specific Gravity,Urine 1.016 (1.001-1.030)
[2022-12-22 20:38] LABS: Bacteria,Urine Trace /HPF (None Seen)
== END | disposition home or self-care (01) ==
LOC: LABWHC1 09:43
PROVIDERS: ATTEND Internal Medicine
DX: E55.9 Vitamin D deficiency, unspecified (principal); N39.0 Urinary tract infection, site not specified; E21.3 Hyperparathyroidism, unspecified; M10.9 Gout, unspecified; D63.1 Anemia in chronic kidney disease; N18.31 Chronic kidney disease, stage 3a
CPT/HCPCS: 36415; 80053; 81001; 82306; 82728; 83540; 83550; 83735; 83970; 84100; 84550; 85027

== ENCOUNTER → 2023-04-30 | Outpatient (CLI) | payer BC ==
[2023-04-30 21:35] LABS: Basophils # (A) 0.03 X 10*3/uL (0.00-0.10); Basophils % (A) 0.6 %; Eosinophils # (A) 0.11 X 10*3/uL (0.04-0.35); Eosinophils % (A) 2.1 %; HGB 14.2 d/dL (12.0-15.0); Lymphocytes # (A) 1.04 X 10*3/uL (0.90-5.00); Lymphocytes % (A) 19.8 %; MCH 31.6 pg (27.0-32.0); MCHC 33.8 d/dL (32.0-37.0); MCV 93.3 FL (80.0-97.0); Mean Platelet Volume 10.5 FL (9.5-12.2); Monocytes # (A) 0.47 X 10*3/uL (0.20-1.00); NRBC Per 100 WBC 0 X 10*3/uL (0.00-0.01); Neutrophils # (A) 3.56 X 10*3/uL (1.80-7.70); Neutrophils % (A) 67.9 %; Platelet Count 111 X 10*3/uL (140-440); RDW 13.4 % (11.5-14.5); WBC 5.24 X 10*3/uL (4.50-10.00)
[2023-04-30 21:37] LABS: % Iron Saturation 34.95 (12.00-45.00); ALT 63 U/L (8-44); AST 89 U/L (13-35); Albumin 4.4 d/dL (3.8-4.9); Albumin/Globulin Ratio 1.52 Ratio (1.60-3.17); Alkaline Phosphatase 95 U/L (41-126); Blood Urea Nitrogen 14.1 mg/dL (9.0-27.0); Calcium 10.2 mg/dL (8.7-10.3); Carbon Dioxide 27.5 mmol/L (21.6-31.8); Chloride 101 mmol/L (96-109); Globulin 2.9 d/dL (1.6-3.3); Glucose 87 mg/dL (70-110); Iron 108 UG/DL (50-170); Phosphorus 3.8 mg/dL (2.4-5.1); Potassium 4.2 mmol/L (3.5-5.5); Sodium 141 mmol/L (135-145); Total Bilirubin 0.8 mg/dL (0.3-1.2); Total Iron Binding Capacity 309 UG/DL (228-460); Total Protein 7.3 d/dL (6.2-8.2); Uric Acid 4.5 mg/dL (2.9-7.7)
[2023-04-30 21:44] LABS: Appearance,Urine Clear (Clear); Bilirubin,Urine Negative (Negative); Blood,Urine Negative (Negative); Color,Urine Yellow (Yellow); Ketones,Urine Negative (Negative); Nitrite,Urine Negative (Negative); PH, Urine 6.5; Specific Gravity,Urine 1.004 (1.001-1.030); Urobilinogen,Urine 0.2 E.U./DL
[2023-04-30 22:36] LABS: Bacteria,Urine None Seen (None Seen)
== END | disposition home or self-care (01) ==
LOC: LABWHC1 16:07
PROVIDERS: ATTEND Nurse Practitioner Family
DX: N18.31 Chronic kidney disease, stage 3a (principal)
CPT/HCPCS: 36415; 80053; 81001; 82306; 82728; 83540; 83550; 83735; 83970; 84100; 84550; 85025

== ENCOUNTER 2024-02-25 14:23 | Emergency (ER) | payer BC ==
[2024-02-25] MEDS ORDERED: PANTOPRAZOLE 40 MG/10 ML VIAL ONE (21:12)
== END 2024-02-25 22:40 | disposition home or self-care (01) ==
LOC: EC 14:23
DX: K64.5 Perianal venous thrombosis (principal); E83.42 Hypomagnesemia; Z87.19 Personal history of other diseases of the digestive system
CPT/HCPCS: 86900; 86901; 80053; 82140; 83605; 83735; 85025; 85610; 85730; 86850; 82272; 99283; J2470

== ENCOUNTER → 2025-02-02 | Outpatient (CLI) | payer BC ==
--- NOTE | 2025-02-02 08:39 | US ---
EXAMINATION TYPE: US abdomen limited DATE OF EXAM: 02/02/2025 COMPARISON: NONE CLINICAL INDICATION: Female, 59 years old with history of N18.2 CKD STAGE 2; distention and LUQ pain TECHNIQUE: Grayscale imaging of the 4 abdominal quadrants for ascites. FINDINGS AND IMPRESSION: No ascites seen throughout abdomen. Incidental splenomegaly at 14.8 cm. [facility], Workstation: [id number], 02/02/2025 8:37 AM
== END | disposition home or self-care (01) ==
LOC: RADUSWWP 07:44
PROVIDERS: ATTEND Internal Medicine
DX: N18.2 Chronic kidney disease, stage 2 (mild) (principal)
CPT/HCPCS: 76705